=== PATIENT | female | born 1965 | race Caucasian/White ===

== ENCOUNTER → 2018-02-16 15:37 | Outpatient (CLI) | payer OTHER, SELFPAY ==
--- NOTE | 2018-02-16 15:39 | CT_ITS ---
STUDY: CT ABDOMEN AND PELVIS WITH CONTRAST REASON FOR EXAM: Female, 52 years old. Hematuria RADIATION DOSAGE (If Supplied By Facility): CTDIvol = ( 7.23 ) mGy, DLP = ( 427.59 ) mGycm TECHNIQUE: Transaxial images were obtained from the dome of the diaphragm to the symphysis pubis without oral contrast. 100 ml of Isovue 300 contrast was administered. Sagittal and coronal images were reconstructed. Individualized dose optimization techniques were used for this CT. COMPARISON: None. FINDINGS: There is atelectasis at the lung bases. The visualized portions of the heart and pericardium are within normal limits. There are no calcified gallstones present. There is a 4.0 x 3.9 cm hemangioma in the dome of the liver. The liver is otherwise within normal limits. There are no suspicious hepatic lesions. There are calcified granulomata noted in the spleen. The pancreas is within normal limits. The adrenal glands are within normal limits. There is a punctate nonobstructing stone in the collecting system of the right kidney. There are no additional urinary stones. There is no hydronephrosis. There is a simple cyst in the left kidney. There are no solid or enhancing renal lesions. The urinary bladder is unremarkable. Normal visualized stomach. There is no bowel obstruction or inflammation. The patient is status post appendectomy. The aorta is normal in caliber. There is no abdominal or pelvic free air, free fluid, fluid collection or lymphadenopathy. There are no destructive osseous lesions. CT/Abdomen/Pelvis WITH Contrast IMPRESSION: Punctate nonobstructing right renal stone. No additional urinary calculi. No hydronephrosis. Simple cyst left kidney. No solid enhancing renal lesions. Hepatic hemangioma. Electronically Signed: Moe Holder, at 16:16 EDT Tel , Service support ,
== END ==
PROVIDERS: Family Provider Family Medicine; PCP Family Medicine; Visit Provider Family Medicine
DX: R31.29 Other microscopic hematuria (principal)
CPT/HCPCS: 74177; Q9967

== ENCOUNTER → 2018-10-13 15:28 | Outpatient (CLI) | payer OTHER, SELFPAY ==
--- NOTE | 2018-10-13 15:30 | BI_ITS ---
MAMMOGRAPHY - BILATERAL SCREENING REASON FOR EXAM: Female, 53 years old. Routine annual screening examination. PERTINENT HISTORY: Non-contributory. TECHNIQUE: Digital bilateral breast taj (3D mammographic acquisition) in the CC and MLO projections. 2-D mediolateral oblique (MLO) and craniocaudad (CC) views of both breasts were obtained. CAD: Full Field Digital Mammography with Computer Added Detection was performed. COMPARISON: Comparison is made with prior study dated September 14, 2017 and August 31, 2016. FINDINGS: Breast Composition: The breasts are extremely dense, which lowers the sensitivity of mammography. There are no dominant masses or suspicious calcifications. No other significant abnormalities are identified. There has been no significant change since the prior study. BI/SCREENING MAMM (CAD), BILAT IMPRESSION: Stable bilateral screening mammogram. Yearly follow-up mammogram recommended. (A) ASSESSMENT CATEGORY: BIRADS Category 1: Negative. A letter regarding these results will be sent to the patient by the facility within 30 days. Approximately 10% of breast cancers are not detected by mammography. A normal mammogram should not delay biopsy of a clinically suspicious abnormality. [id number] Electronically Signed: Toy Bonilla MD at 8:41 EST , Service support ,
--- NOTE | 2018-10-13 15:32 | BD_ITS ---
STUDY: DUAL ENERGY X-RAY ABSORPTIOMETRY / DXA REASON FOR EXAM: Female, 53 years old. The patient is postmenopausal. Loss of height. TECHNIQUE: Bone Mineral Density (BMD) measurements of lumbar spine and bilateral hips were obtained. COMPARISON: None. FINDINGS: Lumbar Spine (L1-L4): g/cm2 (1.363) / T-score (1.5) / Z-score (2.4) Findings are suggestive of normal bone density with a low fracture risk. Left Femur Total: g/cm2 (0.935) / T-score (-0.7) / Z-score (0.3) Right Femur Total: g/cm2 (1.087) / T-score (0.6) / Z-score (1.3) Right Femoral Neck: g/cm2 (0.960) / T-score (-0.6) / Z-score (0.5) BD/Dexa Bone Density Study IMPRESSION: The patient is considered normal as outlined below according to World [employer] Organization (WHO) criteria with a low fracture risk. Reference Information: The T-score is the number of standard deviations above or below the standard which is normal for young adults at their peak bone mineral density. The World Health Organization (WHO) interprets the T-scores as follows: Above -1 Normal bone density Between -1 and -2.5 Osteopenia Equal to / or below -2.5 Osteoporosis As a practical clinical guideline, osteopenia may be graded as follows: Mild -1 through -1.5 Moderate -1.6 through -2.0 Severe -2.1 through -2.4 The Z-score is the number of standard deviations above or below age-matched controls. A Z-score of less than -1.5 would be considered abnormal. References: 1. NIH Osteoporosis and Related Bone Diseases http://www.osteo.org 2. International Society for Clinical Densitometry http://www.iscd.org 3. National Osteoporosis Foundation http://www.nof.org Electronically Signed: Toy Bonilla MD at 10:35 EST , Service support ,
== END ==
PROVIDERS: Family Provider Family Medicine; PCP Family Medicine; Referring Provider Obstetrics & Gynecology; Visit Provider Obstetrics & Gynecology
DX: Z12.31 Encounter for screening mammogram for malignant neoplasm of breast (principal); Z13.820 Encounter for screening for osteoporosis; Z78.0 Asymptomatic menopausal state
CPT/HCPCS: 77063; 77067; 77080

== ENCOUNTER → 2018-12-15 13:04 | Outpatient (CLI) | payer OTHER, SELFPAY ==
[2018-12-15 12:56] VITALS: BMI 20.6
--- NOTE | 2018-12-15 13:08 | RAD_ITS ---
STUDY: X-RAY - LEFT HAND, ATTENTION THIRD FINGER REASON FOR EXAM: Female, 53 years old. Pain TECHNIQUE: 4 view(s) of the finger were obtained. COMPARISON: None. FINDINGS: Normal metacarpal head. Normal metacarpophalangeal joint. Normal proximal phalanx. Normal middle phalanx. Normal distal phalanx. Normal proximal interphalangeal joint. Normal distal interphalangeal joint. RAD/Finger(s) Min 2 Views IMPRESSION: Normal x-ray examination of the finger. Electronically Signed: Rios Falcon MD at 13:26 EDT , Service support ,
== END ==
PROVIDERS: Family Provider Family Medicine; PCP Family Medicine; Referring Provider Physician Assistant; Visit Provider Physician Assistant
DX: M79.645 Pain in left finger(s) (principal)
CPT/HCPCS: 73140

== ENCOUNTER → 2019-08-07 15:27 | Outpatient (CLI) | payer OTHER, SELFPAY ==
[2018-12-15 12:56] VITALS: BMI 20.6
--- NOTE | 2019-08-07 15:33 | RAD_ITS ---
STUDY: X-RAY - LEFT HAND, ATTENTION FIRST FINGER REASON FOR EXAM: Female, 54 years old. Pain. TECHNIQUE: 3 view(s) of the finger were obtained. COMPARISON: None. FINDINGS: Normal metacarpal head. Normal metacarpophalangeal joint. There is degenerative arthritis at the first carpometacarpal joint with minimal subluxation. Normal proximal phalanx. Normal middle phalanx. Normal distal phalanx. There is mild degenerative arthrosis of the proximal interphalangeal joint. Normal distal interphalangeal joint. There is no demonstrated fracture. There is no soft tissue swelling. RAD/Finger(s) Min 2 Views IMPRESSION: Degenerative disease as described above. Electronically Signed: Mary Jo Gan MD at 0:43 EST , Service support ,
--- NOTE | 2019-08-07 15:33 | RAD_ITS ---
STUDY: X-RAY - RIGHT HAND, ATTENTION FIRST FINGER REASON FOR EXAM: Female, 54 years old. Pain. TECHNIQUE: 3 view(s) of the finger were obtained. COMPARISON: None. FINDINGS: Normal metacarpal head. Normal metacarpophalangeal joint. There is degenerative disease at the first carpometacarpal joint with minimal malalignment. Normal proximal phalanx. Normal middle phalanx. Normal distal phalanx. Normal proximal interphalangeal joint. There is mild degenerative arthrosis of the distal interphalangeal joint. There is no soft tissue swelling. There is no demonstrated fracture. RAD/Finger(s) Min 2 Views IMPRESSION: Degenerative disease, most severely involving the first carpometacarpal joint with very minimal malalignment. Otherwise no acute fracture. Electronically Signed: Mary Jo Gan MD at 0:43 EST , Service support ,
== END ==
PROVIDERS: Family Provider Family Medicine; PCP Family Medicine; Referring Provider Specialist; Visit Provider Specialist
DX: M18.0 Bilateral primary osteoarthritis of first carpometacarpal joints (principal)
CPT/HCPCS: 73140

== ENCOUNTER → 2019-09-01 06:28 | Outpatient (CLI) | payer OTHER, SELFPAY ==
[2018-12-15 12:56] VITALS: BMI 20.6
[2019-09-01 07:20] LABS: Hematocrit 45.2 % (37-47); Hemoglobin 14.4 g/dL (12.0-15.0); Mean Corp Hgb Conc 31.9 g/dL (32-36); Mean Corpuscular Hgb 29.4 pg (27.0-32.0); Mean Corpuscular Volume 92.2 fL (81-99); Mean Platelet Vol. 9.1 fl (6.2-12.0); Platelet Count 286 K/mm3 (150-450); White Blood Count 8.9 K/mm3 (4.4-11.0)
[2019-09-01 07:50] LABS: ALB/GLOB Ratio 1.2 RATIO (0.9-2.4); AST(SGOT) 23 U/L (15-37); Alanine Aminotransfer ALT/SGPT 28 U/L (13-56); Alkaline Phosphatase 116 U/L (45-117); Anion Gap 4 (5-15); BUN 21 mg/dL (7-18); BUN/Creat Ratio 18.9 RATIO (10-20); Calcium,Total 9.6 mg/dL (8.5-10.1); Chloride 109 mmol/L (98-107); Cholesterol 186 mg/dL (200); Creatinine, Serum 1.11 mg/dL (0.55-1.02); EST Glomerular Filtration Rate 54 mL/min (>60); Est Glom Filt Rate - Afr Amer 65 mL/min (>60); Globulin 3.4 g/dL (2.2-4.2); Glucose 90 mg/dL (74-106); High Density Lipoprotein 77 mg/dL; Potassium 4.2 mmol/L (3.5-5.1); Protein, Total 7.4 g/dL (6.4-8.2); Sodium Level 141 mmol/L (136-145); Triglycerides 77 mg/dL; Very Low Density Lipoprotein 15 mg/dL (5-40)
== END ==
LOC: LAB.FUTURE 06:31 → LAB 06:34
PROVIDERS: Family Provider Family Medicine; PCP Family Medicine; Referring Provider Family Medicine; Visit Provider Family Medicine
DX: Z00.00 Encounter for general adult medical examination without abnormal findings (principal); Z13.220 Encounter for screening for lipoid disorders; Z13.1 Encounter for screening for diabetes mellitus
CPT/HCPCS: 36415; 80053; 80061; 85027

== ENCOUNTER → 2019-10-16 12:01 | Outpatient (CLI) | payer OTHER, SELFPAY ==
[2018-12-15 12:56] VITALS: BMI 20.6
--- NOTE | 2019-10-16 12:04 | BI_ITS ---
BILATERAL DIGITAL MAMMOGRAM WITH TOMOSYNTHESIS: This HISTORY: No family history of breast cancer Mediolateraloblique and craniocaudal views demonstrate no evidence of dominant parenchymal masses. No cluster of microcalcifications or architectural distortion is seen. No evidence of skin thickening is identified. There has been no significant change since 10/13/2018. Breast Density: The breast tissue is extremely dense which may lower the sensitivity of mammography. CAD was used to assist in final assessment. IMPRESSION: NORMAL MAMMOGRAM BILATERALLY. FINAL ASSESSMENT: BIRAD 1 (NEGATIVE) YEARLY MAMMOGRAM RECOMMENDED Electronically Signed: Jose Brandt, at 18:06 EST Tel , Service support , BI/SCREEN MAMM (CAD) W/KACI LOUIE
== END ==
PROVIDERS: Family Provider Family Medicine; PCP Family Medicine; Referring Provider Obstetrics & Gynecology; Visit Provider Obstetrics & Gynecology
DX: Z12.31 Encounter for screening mammogram for malignant neoplasm of breast (principal)
CPT/HCPCS: 77063; 77067

== ENCOUNTER 2019-11-25 03:33 | Emergency (ER) | payer OTHER, SELFPAY ==
[2018-12-15 12:56] VITALS: BMI 20.6
[2019-11-25 03:33] VITALS: BP 112/97; PULSE 63; RESP 18; TEMP 35.9; O2SAT 99; BMI 20.6
--- NOTE | 2019-11-25 03:34 | CT_ITS ---
STUDY: CT ABDOMEN AND PELVIS WITHOUT CONTRAST REASON FOR EXAM: Female, 54 years old. PT STATED RT FLANK PAIN, HX OF AND APPY RADIATION DOSAGE (If Supplied By Facility): CTDIvol = ( 6.08 ) mGy, DLP = ( 287.30 ) mGycm TECHNIQUE: Transaxial images were obtained from the dome of the diaphragm to the symphysis pubis without oral contrast, and without intravenous contrast. Sagittal and coronal images were reconstructed. Individualized dose optimization techniques were used for this CT. COMPARISON: CT abdomen and pelvis from 02/16/2018 FINDINGS: The visualized lung bases are unremarkable. The visualized portions of the heart are within normal limits. Stable round hypodensity in the right hepatic lobe measuring approximately 3.5 x 3.5 cm in transverse dimension. Normal gallbladder and extrahepatic biliary system. There are multiple benign calcified granulomata of the spleen. Normal pancreas. Normal bilateral adrenal glands. There is a 2 mm calculus at the right ureterovesicular junction with mild right hydroureter and calyceal dilatation.. Additional tiny nonobstructive 2 mm right renal calculus. Stable left renal tiny cyst. Normal visualized stomach. Normal small intestine. Normal colon. There are surgical clips in the region of the appendix consistent with a prior appendectomy. Normal abdominal aorta. Normal inferior vena cava. Normal retroperitoneum. Normal urinary bladder. Normal abdominal wall. Normal osseous structures. CT/Abdomen/Pelvis without Cont IMPRESSION: 2 mm calculus at the right ureterovesicular junction with mild right hydroureter and calyceal dilatation. Stable right hepatic lobe mass previously characterized as hemangioma. Electronically Signed: Jeovanny Seay, at 4:24 EDT Tel , Service support ,
--- NOTE | 2019-11-25 03:35 | ED.DCSUM_ITS ---
History of Present Illness Chief Complaint: Flank Pain Informant: Patient Onset: Today Context: Sudden Onset Timing: Continuous Current Severity: Moderate Maximum Severity: Severe Narrative: The patient is a 54-year-old female with medical history significant for prior kidney stone that is never required lithotripsy or stenting presents to the emergency department with rather sudden onset right-sided flank and low back pain. Patient states her symptoms began about 2 hours prior to arrival. She states she is been nauseated and has 2 episodes of nonbloody, nonbilious vomiting. She has had stones before and has seen urology, but is never required any procedure. She denies any fevers or chills. She denies any upper respiratory symptoms. She is not found anything that improve the pain. Prior similar symptoms: Yes Recent Illness/Hospitalization: No Past Medical History - Allergies and Home Meds Allergies/Adverse Reactions: Allergies bacitracin Allergy (Intermediate, Verified 12/15/18 12:56) Other Penicillins [PCN] Allergy (Verified 12/15/18 12:56) Rash Primary Care Physician: Oseas Machuca III, MD [Primary Care Provider] - Prior records reviewed: Yes Past Medical History: None Surgical History: noncontributory Smoking Status: Former smoker Review of Systems General: Denies: Chills, Fever, Sweats Eyes: Denies: Visual changes - bilaterally, Diplopia ENT: Denies: Rhinorrhea, Sore throat Cardiovascular: Denies: Chest pain, Palpitations Respiratory: Denies: Dyspnea, Cough, Dyspnea on exertion Gastrointestinal: Reports: Nausea, Vomiting. Denies: Abdominal pain, Diarrhea, Melena, Hematochezia Genitourinary: Denies: Dysuria, Hematuria, Frequency Musculoskeletal: Reports: Back pain. Denies: Extremity Pain Skin: Denies: Rash, Wounds Neurological: Denies: Headache, Weakness, Numbness Physical Exam Inital Vital Signs reviewed: Yes General: Well nourished, Well developed, No Acute Distress Head: Normocephalic, Atraumatic Eyes: Perrl, EOMI ENT: Moist mucous membranes, No rhinorrhea Neck: Supple, Nontender Cardiovascular: Regular rate, Regular rhythm, No murmurs Respiratory: No distress, CTA bilaterally, Chest nontender Abdomen: Soft, Nontender, Nondistended, Normal bowel sounds Back: Normal Inspection, CVA tenderness Extremities: Nontender, No edema Skin: Normal color, No rash Neurological: Alert, Oriented x3, Cranial nerves II-XII grossly intact, Normal Strength, Normal Sensation Psychological: Normal affect, Normal Mood Diagnostic/Tx/Re-eval Clinical Impression(s) from Imaging Studies Abdomen/Pelvis CT 11/25/19 03:34 IMPRESSION: 2 mm calculus at the right ureterovesicular junction with mild right hydroureter and calyceal dilatation. Stable right hepatic lobe mass previously characterized as hemangioma. Electronically Signed: Jeovanny Seay, at 4:24 EDT Tel , Service support , Abnormal Lab Results 11/25/19 11/25/19 03:37 03:37 WBC 13.1 H RBC 4.77 Hgb 14.1 Hct 43.1 MCV 90.4 MCH 29.6 MCHC 32.7 RDW Std Deviation 38.6 RDW Coeff of Efra 11.8 Plt Count 259 MPV 9.0 Immature Gran % (Auto) 0.400 Neut % (Auto) 70.6 H Lymph % (Auto) 23.1 Gordon % (Auto) 4.4 Eos % (Auto) 1.0 Baso % (Auto) 0.5 Absolute Neuts (auto) 9.3 H Absolute Lymphs (auto) 3.04 Nucleated RBC % 0 Sodium 141 Potassium 3.8 Chloride 108 H Carbon Dioxide 26.0 Anion Gap 7 BUN 28 H Creatinine 1.33 H Estim Creat Clear Calc 40.64 Est GFR (MDRD) Af Amer 53 L Est GFR (MDRD) Non-Af 44 L BUN/Creatinine Ratio 21.1 H Glucose 138 H Calcium 9.9 - Medical Decision Making The patient presents with acute right lower back pain into her right groin. She does have history of stones but has passed them without difficulty. The patient was treated with Toradol, morphine, and Zofran. Her nausea was improved but she still had persistent pain. She was given Dilaudid and is now totally pain-free. Screening labs are relatively unremarkable. CT does demonstrate a 2 mm obstructing stone at the UVJ. As the patient is now pain-free, has no evidence of infection, and has a small stone I do feel that she is safe for outpatient therapy and she is comfortable with this plan of care. She has seen Dr. Bernabe in the past. She was counseled on concerning symptoms and reasons to return. She will be discharged home. Impression 1. 2 mm kidney stone ED Disposition - Plan for ED Patient: Instructions: ED Renal Stone w Colic Prescriptions: Tamsulosin HCl [Flomax] 0.4 mg PO DAILY #7 cap Prescription Printed Hydrocodone Bitart/Apap 5-325 [[place] 5MG-325MG] 1 tab PO Q6H PRN PRN 3 Days #10 tab PRN Reason: Pain Prescription Printed Ketorolac [Toradol] 10 mg PO Q6H #15 tab Prescription Printed Ondansetron [Zofran Odt] 4 mg PO Q8H PRN PRN #10 tab PRN Reason: Nausea Prescription Printed Referrals: Yakelin Bernabe MD [STAFF PHYSICIAN] -
[2019-11-25] MEDS: Ketorolac 30 MG/ML Syringe IV (03:43)
[2019-11-25] MEDS: Morphine 4 MG/ML Syringe IV (03:44)
[2019-11-25] MEDS: Ondansetron 4 MG/2 ML Vial IV ×2 (03:44→05:35)
[2019-11-25 03:49] LABS: Absolute Lymphocyte Count 3.04 X10^3/uL (0.83-4.51); Absolute Neutrophil Count 9.3 X10^3/uL (2.0-7.7); Basophil# 0.06 X10^3/uL; Basophil% 0.5 % (0-1); Eosinophil# 0.13 X10^3/uL; Hematocrit 43.1 % (37-47); Hemoglobin 14.1 g/dL (12.0-15.0); Lymphocyte # 3.04 X10^3/ul (4.0); Lymphocyte % 23.1 % (19-41); Mean Corp Hgb Conc 32.7 g/dL (32-36); Mean Corpuscular Hgb 29.6 pg (27.0-32.0); Mean Corpuscular Volume 90.4 fL (81-99); Monocyte# 0.58 X10^3/uL; Monocyte% 4.4 % (0-10); NRBC Flagged by Analyzer 0 % (0-5); Neutrophil # 9.28 X10^3/uL (2.7-7.7); Neutrophil % 70.6 % (47-70); Platelet Count 259 K/mm3 (150-450); RBC Distribution Width CV 11.8 % (11.6-14.6); RBC Distribution Width SD 38.6 fl (35.1-43.9); Red Blood Count 4.77 M/mm3 (4.2-5.4); White Blood Count 13.1 K/mm3 (4.4-11.0)
[2019-11-25 04:02] LABS: Anion Gap 7 (5-15); BUN 28 mg/dL (7-18); BUN/Creat Ratio 21.1 RATIO (10-20); Calcium,Total 9.9 mg/dL (8.5-10.1); Chloride 108 mmol/L (98-107); Creatinine, Serum 1.33 mg/dL (0.55-1.02); EST Glomerular Filtration Rate 44 mL/min (>60); Est Glom Filt Rate - Afr Amer 53 mL/min (>60); Estimated Creatinine Clearance 40.64 ml/min; Glucose 138 mg/dL (74-106); Potassium 3.8 mmol/L (3.5-5.1); Sodium Level 141 mmol/L (136-145)
[2019-11-25] MEDS: HYDROmorphone 1 MG/ML Syringe IV (04:24)
[2019-11-25] MEDS: 0.9% Normal Saline 1,000 ML 250 ML IV (04:26)
[2019-11-25 04:59] LABS: Bacteria 0 SEEN /hpf (None Seen); Mucous, Urine 0 SEEN /hpf (<or=2+); Squamous Epithelial Cells - UA 0 SEEN /hpf (5-10)
[2019-11-25] MEDS: HYDROmorphone 0.5 MG/0.5 ML SYRINGE IV (05:35)
[2019-11-25 05:36] LABS: Color, Urine Yellow (Yellow); Glucose, Dipstick Normal (Normal); Ketone-Dipstick 15 mg/dl (Negative); Leukocyte Esterase-Dipstick 25 /ul (Negative); Nitrite-Dipstick Negative (Negative); Occult Blood-Urine 50 /ul (Negative); Protein-Dipstick 30 mg/dl (Negative); Urine Bilirubin Dipstick Negative (Negative); Urine Clarity Sl. Cloudy (Clear); Urine Urobilinogen Normal (Normal); Urine pH 6.5 (5.0 - 8.0)
[2019-11-25 05:46] VITALS: BP 114/71; PULSE 71; RESP 15; O2SAT 94
[2019-11-25] MEDS: proMETHazine 25 MG/ML Syringe 12.5 MG IV (05:59)
[2019-11-25 06:01] LABS: Red Blood Cells-Urine 0-5 SEEN /hpf (0-5); White Blood Cells 0-5 SEEN /hpf (0-5)
[2019-11-25 06:02] LABS: Amorphous Sediment 1+; Calcium Oxalate Crystals Ur RARE /hpf (<or=2+)
[2019-11-25 06:37] VITALS: BP 101/64; PULSE 74; RESP 15; O2SAT 98
== END 2019-11-25 06:40 | disposition home or self-care (01) ==
LOC: ED 04:09
PROVIDERS: Emergency Provider Emergency Medicine; PCP Family Medicine
DX: N20.1 Calculus of ureter (principal); Z87.891 Personal history of nicotine dependence; Z87.442 Personal history of urinary calculi
CPT/HCPCS: 74176; 80048; 81001; 85025; 96361; 96374; 96375; 96376; 99283; J7030; A4216; J2405

== ENCOUNTER → 2020-09-03 07:50 | Outpatient (CLI) | payer OTHER, SELFPAY ==
[2020-09-03 08:28] LABS: Hematocrit 44.7 % (37-47); Hemoglobin 14.5 g/dL (12.0-15.0); Mean Corp Hgb Conc 32.4 g/dL (32-36); Mean Corpuscular Hgb 29.7 pg (27.0-32.0); Mean Corpuscular Volume 91.4 fL (81-99); Mean Platelet Vol. 8.8 fl (6.2-12.0); Platelet Count 303 K/mm3 (150-450); RBC Distribution Width CV 11.9 % (11.6-14.6); RBC Distribution Width SD 40.2 fl (35.1-43.9); Red Blood Count 4.89 M/mm3 (4.2-5.4); White Blood Count 10.4 K/mm3 (4.4-11.0)
[2020-09-03 08:50] LABS: ALB/GLOB Ratio 1.2 RATIO (0.9-2.4); AST(SGOT) 24 U/L (15-37); Alanine Aminotransfer ALT/SGPT 34 U/L (13-56); Albumin, Serum 3.9 g/dL (3.2-5.0); Alkaline Phosphatase 121 U/L (45-117); Anion Gap 4 (5-15); BUN 18 mg/dL (7-18); BUN/Creat Ratio 16.1 RATIO (10-20); Calcium,Total 9.4 mg/dL (8.5-10.1); Chloride 107 mmol/L (98-107); Cholesterol 190 mg/dL (200); Creatinine, Serum 1.12 mg/dL (0.55-1.02); EST Glomerular Filtration Rate 53 mL/min (>60); Est Glom Filt Rate - Afr Amer 64 mL/min (>60); Globulin 3.3 g/dL (2.2-4.2); Glucose 88 mg/dL (74-106); High Density Lipoprotein 87 mg/dL; Potassium 4.3 mmol/L (3.5-5.1); Protein, Total 7.2 g/dL (6.4-8.2); Sodium Level 139 mmol/L (136-145); Triglycerides 60 mg/dL; Very Low Density Lipoprotein 12 mg/dL (5-40)
== END ==
PROVIDERS: PCP Family Medicine; Referring Provider Family Medicine; Visit Provider Family Medicine
DX: Z00.00 Encounter for general adult medical examination without abnormal findings (principal); Z13.220 Encounter for screening for lipoid disorders
CPT/HCPCS: 36415; 80053; 80061; 85027

== ENCOUNTER → 2020-10-31 13:10 | Outpatient (CLI) | payer OTHER, SELFPAY ==
--- NOTE | 2020-10-31 13:12 | BI_ITS ---
MAMMOGRAPHY - BILATERAL SCREENING REASON FOR EXAM: Female, 55 years old. Routine annual screening examination. PERTINENT HISTORY: Non-contributory. TECHNIQUE: Digital bilateral breast kaci (3D mammographic acquisition) in the CC and MLO projections. 2-D mediolateral oblique (MLO) and craniocaudad (CC) views of both breasts were obtained. CAD: Full Field Digital Mammography with Computer Added Detection was performed. COMPARISON: Comparison is made with prior study dated 10/16/2019 and 10/13/2018. FINDINGS: Breast Composition: The breasts are extremely dense, which lowers the sensitivity of mammography. There are no dominant masses or suspicious calcifications. No other significant abnormalities are identified. There has been no significant change since the prior study. BI/SCRN MAMM (CAD)W/KACI BILAT IMPRESSION: Stable bilateral screening mammogram. Yearly follow-up mammogram recommended. (A) ASSESSMENT CATEGORY: BIRADS Category 1: Negative. A letter regarding these results will be sent to the patient by the facility within 30 days. Approximately 10% of breast cancers are not detected by mammography. A normal mammogram should not delay biopsy of a clinically suspicious abnormality. [id number] Electronically Signed: Toy Bonilla MD at 12:36 EDT , Service support ,
== END ==
PROVIDERS: PCP Family Medicine; Referring Provider Obstetrics & Gynecology; Visit Provider Obstetrics & Gynecology
DX: Z12.31 Encounter for screening mammogram for malignant neoplasm of breast (principal)
CPT/HCPCS: 77063; 77067

== ENCOUNTER 2020-11-01 07:34 | Day surgery (SDC) | payer OTHER, SELFPAY ==
[2020-11-01] VITALS (7 sets, daily range): BP systolic 98–104; BP diastolic 55–87; PULSE 77–89; RESP 16; TEMP 36.3–36.8; O2SAT 99–100; BMI 20.1
--- NOTE | 2020-11-01 07:52 | PCM.HP.STD ---
Problem List (1) Personal history of colonic polyps Status: Acute History of Present Illness Date of Admission: 11/01/20 The patient is a 55 year old F with a personal history of colon polyps. Her previous colonoscopy was August 2013. It was in the sigmoid colon. No evidence of malignancy. She is feeling well. Has no generalized health problems. No bright red blood per rectum or melena. No abdominal pain. No unexpected weight loss. Past Medical History Medical History: Medical History (Last Updated 12/15/18 @ 12:59 by Sandra Quesada) Osteoarthritis M19.90 Chronic back pain M54.9, G89.29 Chronic headaches R51 Allergies bacitracin Allergy (Intermediate, Verified 10/28/20 11:33) Other Penicillins [PCN] Allergy (Verified 10/28/20 11:33) Rash Home Medications: Ambulatory Orders Medication Instructions Recorded Multivit with Calcium,Iron,Min 1 ea PO DAILY 11/25/19 [Multiple Vitamins For Women] Surgical History: Surgical History (Last Updated 12/15/18 @ 12:59 by Sandra Quesada) CRIF hand R hand bx History of tonsillectomy Z90.89 Hx of section Z98.891 Status post ligament repair Z98.890 eye cystectomy R eye Surgical History: noncontributory Smoking Status: Former smoker Tobacco Use: Non-smoker Review of Systems Constitutional: Denies: Fever HEENT: Denies: Difficulty Swallowing Cardiovascular: Denies: Chest Pain Respiratory: Denies: Cough Gastrointestinal: Denies: Abdominal Pain, Hematochezia, Melena Endocrine: Denies: Change in Body Habitus VTE Information - Inpt Only VTE Present on Admission: No - Physical Exam Vitals/I&O's: Body Mass Index (BMI) 20.6 General: Alert, Oriented x3, Cooperative, No apparent distress HEENT: Atraumatic Oral: Moist Mucosa Neck: Supple Lungs: Clear to auscultation, Normal air movement Cardiovascular: Regular rate, Regular Rhythm Abdomen: Bowel Sounds Present, Soft, Non Tender Extremities: No Calf Tenderness Psych/Mental Status: Normal Affect Microbiology Past 72 Hours 10/31/20 09:45 Interface Orders SARS-CoV-2 Antigen (Rapid) - Final Assessment/Plan All Active Problems (Last Updated 12/15/18 @ 12:59 by Sandra Quesada) Personal history of colonic polyps (Acute) Laceration of left middle finger (Acute) Contusion of left middle finger (Acute) I recommended the patient a surveillance colonoscopy with possible biopsy or polypectomy as indicated. She presents via open access today. She has had an opportunity to ask and have questions answered. We will proceed as noted. Joseph Machuca M.D., F.A.C.S. Procedure Criteria Procedure Type: Elective COVID Risk Discussion: The surgeon/proceduralist and patient have discussed in detail the risk of exposure to and/or potential harm posed by the COVID-19 virus with having a surgery/procedure at this time versus the risk of delaying the surgery/procedure. It is not possible to know either the risk of delaying the surgery or procedure or chance of getting an infection with perfect accuracy, but a joint decision was made between the patient and the surgeon/proceduralist to proceed at this time with the scheduled surgery/procedure as indicated on the consent form.
[2020-11-01] MEDS: Lactated Ringers 1,000 ML 100 ML IV (08:15)
--- NOTE | 2020-11-01 09:03 | OP.COLON_ITS ---
Patient Name: Luciana Pickett Procedure Date: 11/01/2020 8:28 AM Date of : 1965 Age: 55 Procedure: Colonoscopy Indications: High risk colon cancer surveillance: Personal history of colonic polyps Providers: Joseph Machuca MD Referring MD: Oseas Machuca Iii Medicines: See the Anesthesia note for documentation of the administered medications Patient Profile: Last Colonoscopy: August 2013. Complications: No immediate complications. Procedure: Pre-Anesthesia Assessment: - Prior to the procedure, a History and Physical was performed, and patient medications and allergies were reviewed. The patient's tolerance of previous anesthesia was also reviewed. The risks and benefits of the procedure and the sedation options and risks were discussed with the patient. All questions were answered, and informed consent was obtained. Prior Anticoagulants: The patient has taken no previous anticoagulant or antiplatelet agents. ASA Grade Assessment: II - A patient with mild systemic disease. After reviewing the risks and benefits, the patient was deemed in satisfactory condition to undergo the procedure. After I obtained informed consent, the scope was passed under direct vision. Throughout the procedure, the patient's blood pressure, pulse, and oxygen saturations were monitored continuously. The pediatric colonoscope was introduced through the anus and advanced to the cecum, identified by appendiceal orifice and ileocecal valve. The colonoscopy was unusually difficult due to a tortuous colon. Successful completion of the procedure was aided by changing the patient to a supine position and using manual pressure. The patient tolerated the procedure well. The quality of the bowel preparation was good. The ileocecal valve and the appendiceal orifice were photographed. Scope In: 8:40:55 AM Scope Withdrawal Time 0 hours 6 minutes 28 seconds Scope Out: 8:58:56 AM Total Procedure Duration Time 0 hours 18 minutes 1 second Findings: Hemorrhoids were found on perianal exam. A few diverticula were found in the entire colon. The exam was otherwise without abnormality. Impression: - Hemorrhoids found on perianal exam. - Diverticulosis in the entire examined colon. - The examination was otherwise normal. - No specimens collected. Recommendation: - Discharge patient to home. - Resume previous diet. - Continue present medications. - Repeat colonoscopy in 10 years for screening purposes. Procedure Code(s): --- Professional --- 29998, Colonoscopy, flexible; diagnostic, including collection of specimen(s) by brushing or washing, when performed (separate procedure) Diagnosis Code(s): --- Professional --- Z86.010, Personal history of colonic polyps K64.9, Unspecified hemorrhoids K57.30, Diverticulosis of large intestine without perforation or abscess without bleeding CPT copyright 2017 [employer]. All rights reserved. The codes documented in this report are preliminary and upon transition program manager review may be revised to meet current compliance requirements. Joseph Machuca MD 11/01/2020 9:03:41 AM This report has been signed electronically. Number of Addenda: 0 Note Initiated On: 11/01/2020 8:28 AM
--- NOTE | 2020-11-01 09:03 | OP.CCLET_ITS ---
11/01/2020 Oseas Machuca I[address] [place] [address] Re : Colonoscopy procedure for Luciana Pickett Dear Dr. Machuca This procedure was performed on Sunday, November 01, 2020. My impressions and recommendations are as follows: Impressions : - Hemorrhoids found on perianal exam. - Diverticulosis in the entire examined colon. - The examination was otherwise normal. - No specimens collected. Recommendations : - Discharge patient to home. - Resume previous diet. - Continue present medications. - Repeat colonoscopy in 10 years for screening purposes. My findings are described in the full procedure note, which is enclosed. If I can be of further assistance, please feel free to contact me at Doctor phone number(s): Work: . Sincerely, Joseph Machuca MD 11/01/2020 9:03:41 AM This report has been signed electronically.
== END 2020-11-01 10:12 | disposition home or self-care (01) ==
LOC: EN 07:35 → AC 07:36
PROVIDERS: PCP Family Medicine; Referring Provider Family Medicine; Visit Provider Surgery
PROC: 0DJD8ZZ Inspection of Lower Intestinal Tract, Via Natural or Artificial Opening Endoscopic (ICD-10-PCS; CPT 45378; principal; 2020-11-01 08:40)
DX: Z12.11 Encounter for screening for malignant neoplasm of colon (principal); K57.30 Diverticulosis of large intestine without perforation or abscess without bleeding; K64.9 Unspecified hemorrhoids; Z20.822 Contact with and (suspected) exposure to COVID-19; M19.90 Unspecified osteoarthritis, unspecified site; M54.9 Dorsalgia, unspecified; G89.29 Other chronic pain; Z78.0 Asymptomatic menopausal state; Z86.010 Personal history of colon polyps; Z87.891 Personal history of nicotine dependence
CPT/HCPCS: 45378; 87426; C9803; J7120; J2405

== ENCOUNTER 2021-09-19 06:03 | Outpatient (CLI) | payer OTHER, SELFPAY ==
[2021-09-19 07:11] LABS: Absolute Lymphocyte Count 2.05 X10^3/uL (0.83-4.51); Absolute Neutrophil Count 4.8 X10^3/uL (2.0-7.7); Basophil# 0.05 X10^3/uL; Basophil% 0.7 % (0-1); Eosinophil# 0.13 X10^3/uL; Eosinophils% 1.7 % (0-5); Hematocrit 44.2 % (37-47); Hemoglobin 14.5 g/dL (12.0-15.0); Lymphocyte # 2.05 X10^3/ul (0.83-4.51); Lymphocyte % 27.6 % (19-41); Mean Corp Hgb Conc 32.8 g/dL (32-36); Mean Corpuscular Hgb 29.7 pg (27.0-32.0); Mean Corpuscular Volume 90.6 fL (81-99); Mean Platelet Vol. 9.2 fl (6.2-12.0); Monocyte# 0.41 X10^3/uL; Monocyte% 5.5 % (0-10); NRBC Flagged by Analyzer 0 % (0-5); Neutrophil # 4.76 X10^3/uL (2.7-7.7); Neutrophil % 64.1 % (47-70); Platelet Count 275 K/mm3 (150-450); RBC Distribution Width CV 12.1 % (11.6-14.6); RBC Distribution Width SD 40.5 fl (35.1-43.9); Red Blood Count 4.88 M/mm3 (4.2-5.4); White Blood Count 7.4 K/mm3 (4.4-11.0)
[2021-09-19 07:39] LABS: ALB/GLOB Ratio 1.1 RATIO (0.9-2.4); AST(SGOT) 18 U/L (15-37); Alanine Aminotransfer ALT/SGPT 20 U/L (13-56); Albumin, Serum 3.6 g/dL (3.2-5.0); Alkaline Phosphatase 103 U/L (45-117); Anion Gap 3 (5-15); BUN 16 mg/dL (7-18); Calcium,Total 9.2 mg/dL (8.5-10.1); Chloride 109 mmol/L (98-107); Cholesterol 161 mg/dL (200); EST Glomerular Filtration Rate 60 mL/min (>60); Est Glom Filt Rate - Afr Amer 73 mL/min (>60); Globulin 3.3 g/dL (2.2-4.2); Glucose 80 mg/dL (74-106); High Density Lipoprotein 69 mg/dL; Potassium 4.1 mmol/L (3.5-5.1); Protein, Total 6.9 g/dL (6.4-8.2); Sodium Level 140 mmol/L (136-145); Triglycerides 77 mg/dL; Very Low Density Lipoprotein 15 mg/dL (5-40)
== END 2021-09-19 23:59 | disposition short-term general hospital (02) ==
PROVIDERS: PCP Family Medicine; Referring Provider Family Medicine; Visit Provider Family Medicine
DX: Z00.00 Encounter for general adult medical examination without abnormal findings (principal)
CPT/HCPCS: 36415; 80053; 80061; 85025

== ENCOUNTER 2021-10-24 10:05 | Outpatient (CLI) | payer OTHER, SELFPAY ==
--- NOTE | 2021-10-24 10:10 | RAD_ITS ---
STUDY: X-RAY - RIGHT FOOT CLINICAL: Female, 56 years old. PAIN OF R GREAT TOE TECHNIQUE: 3 view(s) of the foot. COMPARISON: None. FINDINGS: Normal talus, calcaneus, and tarsal bones. Normal visualized subtalar, talonavicular, calcaneocuboid, tarsal and tarsometatarsal articulations. Normal metatarsi. Normal metatarsophalangeal joint of the great toe. Normal tibial and fibular sesamoid bones. Normal interphalangeal joint of the great toe. Normal phalanges of the great toe. Normal second through fifth metatarsophalangeal joints. Normal interphalangeal joints and phalanges of the lesser toes. The soft tissue structures are unremarkable. RAD/Foot min 3 Views IMPRESSION: Normal x-ray examination of the foot. Electronically Signed: Rios Falcon MD at 12:25 EST ,
== END 2021-10-24 23:59 | disposition home or self-care (01) ==
LOC: RAD 10:07
PROVIDERS: PCP Family Medicine; Referring Provider Family Medicine; Visit Provider Family Medicine
DX: M79.674 Pain in right toe(s) (principal)
CPT/HCPCS: 73630

== ENCOUNTER 2021-11-18 12:31 | Outpatient (CLI) | payer OTHER, SELFPAY ==
--- NOTE | 2021-11-18 12:32 | BI_ITS ---
MAMMOGRAPHY - BILATERAL SCREENING REASON FOR EXAM: Female, 56 years old. Routine annual screening examination. PERTINENT HISTORY: Non-contributory. TECHNIQUE: Digital bilateral breast kaci (3D mammographic acquisition) in the CC and MLO projections. 2-D mediolateral oblique (MLO) and craniocaudad (CC) views of both breasts were obtained. CAD: Full Field Digital Mammography with Computer Added Detection was performed. COMPARISON: Comparison is made with prior study 10/31/2020 and 10/16/2019. FINDINGS: Breast Composition: The breasts are extremely dense, which lowers the sensitivity of mammography. There are no dominant masses or suspicious calcifications. No other significant abnormalities are identified. There has been no significant change since the prior study. BI/SCRN MAMM (CAD)W/KACI BILAT IMPRESSION: Stable bilateral screening mammogram. Yearly follow-up mammogram recommended. (A) ASSESSMENT CATEGORY: BIRADS Category 1: Negative. A letter regarding these results will be sent to the patient by the facility within 30 days. Approximately 10% of breast cancers are not detected by mammography. A normal mammogram should not delay biopsy of a clinically suspicious abnormality. [id number] Electronically Signed: Toy Bonilla MD at 13:33 EDT ,
== END 2021-11-18 23:59 | disposition home or self-care (01) ==
LOC: OPBI 12:31
PROVIDERS: PCP Family Medicine; Referring Provider Obstetrics & Gynecology; Visit Provider Obstetrics & Gynecology
DX: Z12.31 Encounter for screening mammogram for malignant neoplasm of breast (principal)
CPT/HCPCS: 77063; 77067

== ENCOUNTER → 2022-10-05 | Outpatient (CLI) | payer OTHER, SELFPAY ==
[2022-10-05 07:22] LABS: Hematocrit 47.4 % (37-47); Hemoglobin 15.2 g/dL (12.0-15.0); Mean Corp Hgb Conc 32.1 g/dL (32-36); Mean Corpuscular Hgb 29.5 pg (27.0-32.0); Platelet Count 280 K/mm3 (150-450); RBC Distribution Width CV 12.5 % (11.6-14.6); RBC Distribution Width SD 42.1 fl (35.1-43.9); Red Blood Count 5.15 M/mm3 (4.2-5.4); White Blood Count 8.8 K/mm3 (4.4-11.0)
[2022-10-05 07:49] LABS: ALB/GLOB Ratio 1.2 RATIO (0.9-2.4); AST(SGOT) 19 U/L (15-37); Alanine Aminotransfer ALT/SGPT 21 U/L (13-56); Albumin, Serum 3.9 g/dL (3.2-5.0); Alkaline Phosphatase 111 U/L (45-117); Anion Gap 3 (5-15); BUN 21 mg/dL (7-18); BUN/Creat Ratio 18.8 RATIO (10-20); Calcium,Total 9.3 mg/dL (8.5-10.1); Chloride 110 mmol/L (98-107); Cholesterol 187 mg/dL (200); Creatinine, Serum 1.12 mg/dL (0.55-1.02); EST Glomerular Filtration Rate 53 mL/min (>60); Est Glom Filt Rate - Afr Amer 64 mL/min (>60); Globulin 3.3 g/dL (2.2-4.2); Glucose 106 mg/dL (74-106); High Density Lipoprotein 80 mg/dL; Potassium 4.5 mmol/L (3.5-5.1); Protein, Total 7.2 g/dL (6.4-8.2); Sodium Level 141 mmol/L (136-145); Triglycerides 71 mg/dL; Very Low Density Lipoprotein 14 mg/dL (5-40)
== END | disposition home or self-care (01) ==
LOC: LAB 06:04
PROVIDERS: PCP Family Medicine; Referring Provider Physician Assistant; Visit Provider Physician Assistant
DX: Z00.00 Encounter for general adult medical examination without abnormal findings (principal); Z13.220 Encounter for screening for lipoid disorders; Z13.1 Encounter for screening for diabetes mellitus
CPT/HCPCS: 36415; 80053; 80061; 85027

== ENCOUNTER → 2022-11-19 | Outpatient (CLI) | payer OTHER, SELFPAY ==
--- NOTE | 2022-11-19 09:42 | BI_ITS ---
MAMMOGRAPHY - BILATERAL SCREENING REASON FOR EXAM: Female, 57 years old. Routine annual screening examination. PERTINENT HISTORY: Non-contributory. TECHNIQUE: Digital bilateral breast kaci (3D mammographic acquisition) in the CC and MLO projections. 2-D mediolateral oblique (MLO) and craniocaudad (CC) views of both breasts were obtained. CAD: Full Field Digital Mammography with Computer Added Detection was performed. COMPARISON: Comparison is made with prior examination dated November 18, 2021 and October 31, 2020. FINDINGS: Breast Composition: The breasts are extremely dense, which lowers the sensitivity of mammography. There are no dominant masses or suspicious calcifications. No other significant abnormalities are identified. There has been no significant change since the prior study. BI/SCRN MAMM (CAD)W/KACI BILAT IMPRESSION: Stable bilateral screening mammogram. Yearly follow-up mammogram recommended. (A) ASSESSMENT CATEGORY: BIRADS Category 1: Negative. A letter regarding these results will be sent to the patient by the facility within 30 days. Approximately 10% of breast cancers are not detected by mammography. A normal mammogram should not delay biopsy of a clinically suspicious abnormality. [id number] Electronically Signed: Toy Bonilla MD at 10:49 EDT ,
== END | disposition home or self-care (01) ==
PROVIDERS: PCP Family Medicine; Visit Provider Obstetrics & Gynecology
DX: Z12.31 Encounter for screening mammogram for malignant neoplasm of breast (principal)
CPT/HCPCS: 77063; 77067

== ENCOUNTER → 2023-09-30 | Outpatient (CLI) | payer OTHER, SELFPAY ==
--- OUTSIDE RECORDS SUMMARY | 2023-09-30 06:21 | XMS RPT_ITS | CCD ---
Author Name Unknown Address [id number] [place] [address] Organization [facility] Care Team Providers Care Manager Business Continuity Name Role Phone Fred Kramer MD Primary Care Provider Joss MORE Attending Unavailable FRED KRAMER Primary Care Unavailable Allergies Allergy Classification Reported Allergen(s) Allergy Type Date of Onset Reaction(s) Facility (6 sources) Latex; Translations: [LATEX] Drug Intolerance 3 [facility] (6 sources) Penicillins; Translations: [PENICILLINS] Drug Intolerance 6 Rash [facility] (5 sources) Topical Antibiotics [Other] Propensity to adverse reactions 6 Swelling [facility] (1 source) OTHER; Translations: [OTHER] Propensity to adverse reactions (disorder) 6 [facility] Repository Medications Completed/Discontinued Medications Medication Drug Class(es) Dates Sig (Normalized) Sig (Original) acetaminophen 250 mg / aspirin 250 mg / caffeine 65 mg oral tablet (5 sources) Platelet Aggregation Inhibitor, Nonsteroidal Anti-inflammatory Drug, Central Nervous System Stimulant, Methylxanthine take 1 tablet by mouth every six hours as needed Aspirin-Acetamino phen-Caffeine 250-250-65 mg per tablet Take 1 tablet by mouth every 6 hours as needed. 0 Active Problems Active Problems Problem Classification Problem Date Documented Date Episodic/Chronic Cardiac dysrhythmias (7 sources) Supraventricular tachycardia; Translations: [Supraventricular tachycardia] Onset: 10-24-2021 10-24-2021 Chronic Immunizations and screening for infectious disease (1 source) Exposure to communicable disease; Translations: [Contact with and (suspected) exposure to other viral communicable diseases] Episodic Joint disorders and dislocations; trauma-related (7 sources) Degeneration of cartilage AND/OR meniscus of knee; Translations: [Other meniscus derangements, unspecified meniscus, right knee] Onset: 09-29-2018 09-29-2018 Chronic Osteoarthritis (7 sources) Degenerative joint disease of hand; Translations: [Unilateral primary osteoarthritis of first carpometacarpal joint, unspecified hand] Onset: 10-07-2017 10-07-2017 Chronic Other circulatory disease (6 sources) Orthostatic hypotension; Translations: [Orthostatic hypotension] Onset: 10-24-2021 10-24-2021 Episodic Other lower respiratory disease (1 source) Cough; Translations: [Acute cough] Episodic Other screening for suspected conditions (not mental disorders or infectious disease) (2 sources) Patient encounter status; Translations: [Encounter for screening for diabetes mellitus] Episodic Other upper respiratory infections (1 source) Sore throat symptom; Translations: [Acute pharyngitis, unspecified] Episodic Past or Other Problems Problem Classification Problem Date Documented Date Episodic/Chronic Genitourinary symptoms and ill-defined conditions (5 sources) Microscopic hematuria; Translations: [Other microscopic hematuria] Onset: 09-26-2015 10-24-2021 Episodic Other circulatory disease (1 source) Orthostatic hypotension; Translations: [Orthostatic hypotension] Onset: 10-24-2021 Episodic Other nervous system disorders (5 sources) H/O: migraine; Translations: [Personal history of other diseases of the nervous system and sense organs] Onset: 11-09-2013 11-09-2013 Episodic Other non-epithelial cancer of skin (7 sources) Squamous cell carcinoma of skin; Translations: [Squamous cell carcinoma of skin, unspecified] Onset: 10-24-2021 10-24-2021 Episodic Ovarian cyst (5 sources) Cyst of ovary; Translations: [Unspecified ovarian cyst, unspecified side] Onset: 06-20-2013 06-20-2013 Episodic Residual codes; unclassified (5 sources) History of colonoscopy; Translations: [Other specified postprocedural states] Onset: 10-01-2016 10-01-2016 Episodic Results Test Name Value Interpretation Reference Range Facil ity Vital Signs Date Time Vital Sign Value Performing Clinician Jessica carrion 10-15-2022 13:28-0500 Body height 165 cm MELISSA More PA-C Work Phone: [facility] 10-15-2022 13:28-0500 Body weight 53.07 kg NA More PA-C Work Phone: [facility] 10-15-2022 13:28-0500 Diastolic blood pressure 56 mm[Hg] NA More PA-C Work Phone: [facility] 10-15-2022 13:28-0500 Heart rate 67 /min NA More PA-C Work Phone: [facility] 10-15-2022 13:28-0500 Respiratory rate 16 /min NA More PA-C Work Phone: [facility] 10-15-2022 13:28-0500 SaO2% (BldA) [Mass fraction] 97 % NA More PA-C Work Phone: [facility] 10-15-2022 13:28-0500 Systolic blood pressure 100 mm[Hg] NA More PA-C Work Phone: [facility] 09-01-2022 13:09-0500 Body height 162.6 cm Kristy aPz MD Work Phone: [facility] 09-01-2022 13:09-0500 Body weight 52.62 kg Kristy Paz MD Work Phone: [facility] 09-01-2022 13:09-0500 Diastolic blood pressure 62 mm[Hg] Kristy Paz MD Work Phone: [facility] 09-01-2022 13:09-0500 Systolic blood pressure 100 mm[Hg] Kristy Paz MD Work Phone: [facility] 08-11-2022 13:06-0500 Body temperature 98.2 [degF] Zuri Alexander APRN.GOLDBEATER Work Phone: [facility] 08-11-2022 13:06-0500 Body weight 53.43 kg Zuri Alexander APRN.GOLDBEATER Work Phone: [facility] 12-20-2022 13:06-0500 Diastolic blood pressure 60 mm[Hg] Zuri Podlogar FAX MACHINE OPERATOR.GOLDBEATER Work Phone: [facility] 08-11-2022 13:06-0500 Heart rate 92 /min Zuri Podlogar FAX MACHINE OPERATOR.GOLDBEATER Work Phone: [facility] 08-11-2022 13:06-0500 Respiratory rate 16 /min Zuri Podlogar FAX MACHINE OPERATOR.GOLDBEATER Work Phone: [facility] 08-11-2022 13:06-0500 SaO2% (BldA) [Mass fraction] 98 % Zuri Podlogar FAX MACHINE OPERATOR.GOLDBEATER Work Phone: [facility] 08-11-2022 13:06-0500 Systolic blood pressure 98 mm[Hg] Zuri Podlogar FAX MACHINE OPERATOR.GOLDBEATER Work Phone: [facility] Encounters Encounter Date Encounter Type Care Provider Facility Start: 10-15-2022 End: 10-15-2022 ambulatory Joss MORE Facility:[facility] Start: 10-15-2022 Encounter for genera l adult medical examination without abnormal findings Joss MORE [facility] Start: 10-15-2022 End: 10-15-2022 Patient encounter procedure Joss More PA-C Work Phone: [facility] Procedures Date Procedure Procedure Detail Performing Clinician Start: 08-11-2022 STREP A MOLECULAR (POC) Zuri Podlogar FAX MACHINE OPERATOR.GOLDBEATER Work Phone: Start: 11-18-2021 Mammography Zuri Podl varsha FAX MACHINE OPERATOR.GOLDBEATER Work Phone: Start: 11-11-2020 Colonoscopy Kristy Paz MD Work Phone: Start: 09-07-2013 Colonoscopy Zuri Podl varsha FAX MACHINE OPERATOR.GOLDBEATER Work Phone: Plan of Treatment Date Care Activity Detail Author Start: 11-11-2030 Colonoscopy COLONOSCOPY [facility] Start: 11-11-2030 COLORECTAL CANCER SCREENING COLORECTAL CANCER SCREENING [facility] Start: 08-20-2026 HPV TESTING HPV TESTING [facility] Start: 08-20-2026 PAP TESTING PAP TESTING [facility] Start: 09-01-2024 LIPID SCREEN LIPID SCREEN [facility] Start: 10-15-2023 COVID-19 VACCINE (4 - Booster for Moderna series) COVID-19 VACCINE (4 - Booster for Moderna series) [facility] Immunizations Immunization Date Immunization Notes Care Provider Manoj yun 07-13-2022 influenza, seasonal, injectable NA More PA-C Work Phone: [facility] 07-14-2021 influenza, seasonal, injectable, preservative free NA More PA-C Work Phone: [facility] 07-15-2020 influenza A monovale nt (H5N1), adjuvanted, National stockpile 2012 Zuri Podlogar FAX MACHINE OPERATOR.GOLDBEATER Work Phone: [facility] 07-15-2020 influenza, seasonal, injectable NA More PA-C Work Phone: [facility] 07-17-2019 influenza, seasonal, injectable Zuri Podlogar FAX MACHINE OPERATOR.GOLDBEATER Work Phone: [facility] 07-17-2019 influenza, seasonal, injectable, preservative free NA More PA-C Work Phone: [facility] 07-21-2018 influenza, seasonal, injectable NA More PA-C Work Phone: [facility] 07-21-2017 influenza, seasonal, injectable Zuri Podlogar FAX MACHINE OPERATOR.GOLDBEATER Work Phone: [facility] 07-21-2017 influenza, seasonal, injectable, preservative free NA More PA-C Work Phone: [facility] 07-13-2016 influenza, seasonal, injectable NA More PA-C Work Phone: [facility] 08-05-2015 influenza, seasonal, injectable NA More PA-C Work Phone: [facility] 07-12-2014 influenza, seasonal, injectable NA More PA-C Work Phone: [facility] 06-22-2013 influenza, seasonal, injectable, preservative free NA More PA-C Work Phone: [facility] 06-12-2013 tetanus toxoid, redu arlet diphtheria toxoid, and acellular pertussis vaccine, adsorbed Zuri Podlogar FAX MACHINE OPERATOR.[facility] Work Phone: [facility] 11-08-1984 diphtheria and tetan us toxoids, adsorbed for pediatric use Zuri Podlogar FAX MACHINE OPERATOR.[facility] Work Phone: [facility] Work Phone: 01-28-1980 diphtheria and tetan us toxoids, adsorbed for pediatric use Zuri Podlogar FAX MACHINE OPERATOR.[facility] Work Phone: [facility] Work Phone: 09-25-1975 diphtheria and tetan us toxoids, adsorbed for pediatric use Zuri Podlogar FAX MACHINE OPERATOR.[facility] Work Phone: [facility] Work Phone: 01-12-1968 diphtheria, tetanus toxoids and acellular pertussis vaccine Zuri Podlogar FAX MACHINE OPERATOR.[facility] Work Phone: [facility] Work Phone: 01-12-1968 diphtheria, tetanus toxoids and acellular pertussis vaccine, unspecified formulation MELISSA More PA-C Work Phone: [facility] 01-12-1968 trivalent poliovirus vaccine, live, oral Zuri Podlogar FAX MACHINE OPERATOR.[facility] Work Phone: [facility] Work Phone: 04-02-1965 diphtheria, tetanus toxoids and acellular pertussis vaccine Zuri Podlogar FAX MACHINE OPERATOR.[facility] Work Phone: [facility] Work Phone: 04-02-1965 diphtheria, tetanus toxoids and acellular pertussis vaccine, unspecified formulation MELISSA MATAMOROS-Adalberto Work Phone: [facility] 02-21-1964 measles virus vaccine Zuri Podlogar FAX MACHINE OPERATOR.[facility] Work Phone: [facility] Work Phone: 1965 vaccinia (smallpox) vaccine, diluted Zuri Podlogar FAX MACHINE OPERATOR.[facility] Work Phone: [facility] Work Phone: 1965 diphtheria, tetanus toxoids and acellular pertussis vaccine Zuri Podlogar FAX MACHINE OPERATOR.[facility] Work Phone: [facility] Work Phone: 1965 diphtheria, tetanus toxoids and acellular pertussis vaccine, unspecified formulation NA More PA-C Work Phone: [facility] 1965 trivalent poliovirus vaccine, live, oral Zuri Podlogar FAX MACHINE OPERATOR.[facility] Work Phone: [facility] Work Phone: 1965 diphtheria, tetanus toxoids and acellular pertussis vaccine Zuri Podlogar FAX MACHINE OPERATOR.[facility] Work Phone: [facility] Work Phone: 1965 diphtheria, tetanus toxoids and acellular pertussis vaccine, unspecified formulation NA More PA-C Work Phone: [facility] 1965 trivalent poliovirus vaccine, live, oral Zuri Podlogar FAX MACHINE OPERATOR.[facility] Work Phone: [facility] Work Phone: 1965 diphtheria, tetanus toxoids and acellular pertussis vaccine Zuri Podlogar FAX MACHINE OPERATOR.[facility] Work Phone: [facility] Work Phone: 1965 diphtheria, tetanus toxoids and acellular pertussis vaccine, unspecified formulation NA More PA-C Work Phone: [facility] 1965 trivalent poliovirus vaccine, live, oral Zuri Podlogar FAX MACHINE OPERATOR.[facility] Work Phone: [facility] Work Phone: Payers Date Payer Category Payer Private Health Insurance [facility] [id number] 2022-Present [phone] [address] [place] [address] PPO [id number] 2022 Private Health Insurance [id number] 2019 Unknown MMO MMO TPA [id number] 2019-Present [address] [place] [address] PPO [id number] Social History Date Type Detail Facility Start: 06-28-2014 End: 09-01-2022 Tobacco smoking status NHIS Ex-smoker [facility] Start: 07-02-2013 End: 10-26-2013 History of tobacco use Current smoker [facility] Start: 07-02-2013 End: 10-26-2013 History of tobacco use Cigarette Smoker [facility] Start: 06-28-2014 End: 09-01-2022 Cigarette pack-years [facility] Start: 06-28-2014 End: 09-01-2022 Tobacco use and exposure Smokeless tobacco non-user [facility] Start: 10-24-2021 End: 10-15-2022 Alcohol intake Current non-drinker of alcohol (finding) [facility] Start: 1965 Sex Assigned At Not on file C [facility] Start: 10-08-2022 History SDOH Alcohol Frequency 1 [facility] Start: 10-08-2022 History SDOH Alcohol Std Drinks 0 [facility] Start: 10-08-2022 History SDOH Social Connections Phone 5 [facility] Start: 10-08-2022 History SDOH Social Connections Get Together 3 [facility] Start: 10-08-2022 History SDOH Physica l Activity DPW 7 [facility] Start: 10-08-2022 History SDOH Transport Med 2 [facility] Clinical Notes 10-07-2017 to 10-15-2022 Patient InstructionsM Jono More PA-C - 10/15/2022 1:40 PM ESTDeidre Rony Paz MD - 09/01/2022 1:07 PM ESTTelephone Encounter - M Jono More PA-C - 08/27/2022 1:13 PM EST Note Date & Type Note Facility 10-15-2022 Note HNO ID: [id number] Author: Joss More PA-C Service: ? Author Type: Physician Piler Type: Progress Notes Filed: 10/15/2022 6:30 PM Note Text: 57 year old female with c/o annual wellness exam Current concerns: None Orthostatic hypotension Svt (supraventricular tachycardia) (hcc) Stable, no new changes Careful when standing up S/p ablation Has some feeling like she's about to go into it but doesn't. Meniscus degeneration, right No pain or symptoms related to this Osteoarthritis of thumb, unspecified laterality Worse with starting activities, such as golfing, but better the more she moves it Cancer, skin, squamous cell No more lesions or changes in moles Follow up with Dough Mixer Helper for skin check, next appointment October 2022 HISTORIES FAMILY HISTORY Problem Relation Age of Onset Hypertension Mother Arthritis Mother Cancer Father Abdominal Lymphoma Osteoporosis Paternal Grandmother Lipids Paternal Grandfather High Cholesterol Coronary Artery Disease Paternal Grandfather Hypertension Maternal Grandfather Cancer Maternal Grandmother Uterine other (kidney stones) Sister other (Other) Sister No breast/ovary/colon cancer PAST MEDICAL HISTORY Diagnosis Date Dysmenorrhea Fibrocystic breast disease 610.1 History of colonoscopy with polypectomy 10/01/2016 hyperplastic polyp , 08/2013 History of migraine headaches 11/09/2013 Kidney stone 2018 Microscopic hematuria 09/26/2015 Osteoarthritis Left thumb Osteoarthritis of thumb 10/07/2017 Paroxysmal supraventricular tachycardia (HCC) Supraventricular tachycardia PAST SURGICAL HISTORY Procedure Laterality Date APPENDECTOMY 08/23/1999 COLONOSCOPY FLX DX W/COLLJ SPEC WHEN PFRMD 09/07/2013 Colonoscopy out pt H LIG/TRNSXJ FLP TUBE ABDL/VAG APPR UNI/BI bilateral partial salpingectomy PAST SURGICAL HISTORY OF Thumb surgery PAST SURGICAL HISTORY OF 08/23/2001 Cardiac Cath Ablation PAST SURGICAL HISTORY OF cyst removed from right eyelid PAST SURGICAL HISTORY OF Right 09/2021 excision on right breast SKIN BX, 1 LESION Right mid forehead TONSILLECTOMY PRIMARY/SECONDARY Tonsillectomy Social History Tobacco Use Smoking status: Former Packs/day: 0.00 Years: 22.00 Pack years: 0.00 Types: Cigarettes Start date: 07/02/2013 Quit date: 10/26/2013 Years since quittin.9 Smokeless tobacco: Never Vaping Use Vaping Use: Never used Substance Use Topics Alcohol use: No Drug use: No ACTIVE PROBLEM LIST Ovarian Cyst History of Migraine Headaches Microscopic Hematuria History of Colonoscopy With Polypectomy Osteoarthritis of Thumb Meniscus Degeneration, Right Orthostatic Hypotension Svt (Supraventricular Tachycardia) (Hcc) Cancer, Skin, Squamous Cell Current Outpatient Medications Medication Sig Dispense Refill benzonatate (TESSALON PERLES) 100 mg capsule Take 1 capsule by mouth three times daily as needed for cough. 30 capsule 0 polyethylene glycol 3350 (MIRALAX, GLYCOLAX) 17 gram/dose powder Use as directed for Miralax / Gatorade Bowel Prep Kit (Patient not taking: Reported on 09/01/2022) 238 g 0 MULTIVITAMIN ORAL Take by mouth. MAGNESIUM ORAL Take by mouth once daily. NIACIN ORAL Take by mouth once daily. cholecalciferol, vitamin D3, (VITAMIN D3 ORAL) Take by mouth once daily. Xezpmcd-Ckwadqxhcfsgc-Twczoolq (EXCEDRIN MIGRAINE) 250-250-65 mg per tablet Take 1 tablet by mouth every 6 hours as needed. No current facility-administered medications for this visit. SHINGRIX VACCINE(1 of 2) Never done COVID-19 VACCINE(4 - Booster for Moderna series) due on 08/20/2021 DEPRESSION ASSESSMENT Never done DIABETES SCREEN due on 09/01/2022 MAMMOGRAM due on 11/18/2022 REVIEW OF SYMPTOMS: General: denies fatigue, unusual weight loss or gain, fevers, chills. Energy Level: Fatigued by the end of the day since having COVID in March 2022. Otherwise feels great. Exercise Daily. If yes, what type: Mix of cardio and strength training. How often/lon-60 minutes. Sleep: hours: About 6-7 hours Diet: Rarely eats meat. Gets a variety of vegetables, carbs, and protein. Any routine health measures: Associate Field Service Engineer, Dough Mixer Helper, Bakery Demonstrator, Dentist. Tobacco use: None. Caffeine use: 1 cup a day. ETOH use: None. Marijuana use: None. Illicit drug use: None. Eyes: denies change in vision, glaucoma, cataracts. Wears glasses for driving and reading. Last eye exam: About 2 years ago. EENT: denies recurrent sinus infection, unusual nasal drainage, hoarsemess, sore throat, or recurrent sore in mouth or tongue. Cardiovascular: denies chest pain , SOB, palpitation, irregular or racing heart beats, (more content not included)... [facility] 10-15-2022 Jennifer More PA-C - 10/15/2022 2:14 PM EST HEALTH MAINTENANCE: Your Body mass index is 19.49 kg/m . (Target BMI: 19-25) Regular aerobic exercise, low fat diet, and periodic exams are recommended Living Will & Medical Power of Mental Health Professional recommended Periodic Pap smear per risk profile. Mammogram recommended yearly. Colon cancer screening by age 50 & every 5-10 years. Calcium intake of 1200-1500mg elemental calcium per day and 1,000-2,000 IU of Vitamin D3/cholecalciferol daily. Bone mineral density (by age 65 or sooner if other risk factors for osteoporosis). IMMUNIZATIONS: TD at age 50 or every 10 years Pneumovax (between ages 50-65) Recommend consideration for Zostavax (shingles vaccine) in women age 60 and older. Yearly flu vaccine in the fall for those 50 and older LABS: Thyroid screening every 5 years after age 50 Fasting blood sugar every 3 years after age 45 Fasting cholesterol every five years after age 45 documented in this encounter [facility] 10-15-2022 History of Presen t illness Narrative 57 year old female with c/o annual wellness exam Current concerns: None Orthostatic hypotension Svt (supraventricular tachycardia) (hcc) Stable, no new changes Careful when standing up S/p ablation Has some feeling like she's about to go into it but doesn't. Meniscus degeneration, right No pain or symptoms related to this Osteoarthritis of thumb, unspecified laterality Worse with starting activities, such as golfing, but better the more she moves it Cancer, skin, squamous cell No more lesions or changes in moles Follow up with Dough Mixer Helper for skin check, next appointment October 2022 HISTORIES FAMILY HISTORY Problem Relation Age of Onset Hypertension Mother Arthritis Mother Cancer Father Abdominal Lymphoma Osteoporosis Paternal Grandmother Lipids Paternal Grandfather High Cholesterol Coronary Artery Disease Paternal Grandfather Hypertension Maternal Grandfather Cancer Maternal Grandmother Uterine other (kidney stones) Sister other (Other) Sister No breast/ovary/colon cancer PAST MEDICAL HISTORY Diagnosis Date Dysmenorrhea Fibrocystic breast disease 610.1 History of colonoscopy with polypectomy 10/01/2016 hyperplastic polyp , 08/2013 History of migraine headaches 11/09/2013 Kidney stone 2018 Microscopic hematuria 09/26/2015 Osteoarthritis Left thumb Osteoarthritis of thumb 10/07/2017 Paroxysmal supraventricular tachycardia (HCC) Supraventricular tachycardia PAST SURGICAL HISTORY Procedure Laterality Date APPENDECTOMY 08/23/1999 COLONOSCOPY FLX DX W/COLLJ SPEC WHEN PFRMD 09/07/2013 Colonoscopy out pt [facility] LIG/TRNSXJ FLP TUBE ABDL/VAG APPR UNI/BI bilateral partial salpingectomy PAST SURGICAL HISTORY OF Thumb surgery PAST SURGICAL HISTORY OF 08/23/2001 Cardiac Cath Ablation PAST SURGICAL HISTORY OF cyst removed from right eyelid PAST SURGICAL HISTORY OF Right 09/2021 excision on right breast SKIN BX, 1 LESION Right mid forehead TONSILLECTOMY PRIMARY/SECONDARY <AGE 12 Tonsillectomy Social History Tobacco Use Smoking status: Former Packs/day: 0.00 Years: 22.00 Pack years: 0.00 Types: Cigarettes Start date: 07/02/2013 Quit date: 10/26/2013 Years since quittin.9 Smokeless tobacco: Never Vaping Use Vaping Use: Never used Substance Use Topics Alcohol use: No Drug use: No ACTIVE PROBLEM LIST Ovarian Cyst History of Migraine Headaches Microscopic Hematuria History of Colonoscopy With Polypectomy Osteoarthritis of Thumb Meniscus Degeneration, Right Orthostatic Hypotension Svt (Supraventricular Tachycardia) (Hcc) Cancer, Skin, Squamous Cell Current Outpatient Medications Medication Sig Dispense Refill benzonatate (TESSALON PERLES) 100 mg capsule Take 1 capsule by mouth three times daily as needed for cough. 30 capsule 0 polyethylene glycol 3350 (MIRALAX, GLYCOLAX) 17 gram/dose powder Use as directed for Miralax / Gatorade Bowel Prep Kit (Patient not taking: Reported on 09/01/2022) 238 g 0 MULTIVITAMIN ORAL Take by mouth. MAGNESIUM ORAL Take by mouth once daily. NIACIN ORAL Take by mouth once daily. cholecalciferol, vitamin D3, (VITAMIN D3 ORAL) Take by mouth once daily. Vcfhmqd-Vykeemhjshblj-Jawdhids (EXCEDRIN MIGRAINE) 250-250-65 mg per tablet Take 1 tablet by mouth every 6 hours as needed. No current facility-administered medications for this visit. SHINGRIX VACCINE(1 of 2) Never done COVID-19 VACCINE(4 - Booster for Moderna series) due on 08/20/2021 DEPRESSION ASSESSMENT Never done DIABETES SCREEN due on 09/01/2022 MAMMOGRAM due on 11/18/2022 REVIEW OF SYMPTOMS: General: denies fatigue, unusual weight loss or gain, fevers, chills. Energy Level: Fatigued by the end of the day since having COVID in March 2022. Otherwise feels great. Exercise Daily. If yes, what type: Mix of cardio and strength training. How often/lon-60 minutes. Sleep: hours: About 6-7 hours Diet: Rarely eats meat. Gets a variety of vegetables, carbs, and protein. Any routine health measures: Associate Field Service Engineer, Dough Mixer Helper, Bakery Demonstrator, Dentist. Tobacco use: None. Caffeine use: 1 cup a day. ETOH use: None. Marijuana use: None. Illicit drug use: None. Eyes: denies change in vision, glaucoma, cataracts. Wears glasses for driving and reading. Last eye exam: About 2 years ago. EENT: denies recurrent sinus infection, unusual nasal drainage, hoarsemess, sore throat, or recurrent sore in mouth or tongue. Cardiovascular: denies chest pain , SOB, palpitation, irregular or racing heart beats, orthopnea, leg swelling, history of rheumatic fever or prior heart conditions Respiratory: denies unusual cough, SOB, wheezing, history of recurrent bronchitis, pneumonia or tuberculosis. Denies day time drowsiness. Not sure: Snoring. No sleep apnea. GI: denies difficulty swallowing, nausea, vomiting, change in appetite. No change in bowel habits. Denies constipation, diarrhea, rectal bleeding or hemorrhoids, incontinence. No history of GERD, PUD, jaundice/hepatitis, GB disease, diverticulosis, colorectal cancer, hernias. Kidney/Bladder: Denies frequency, burning. Nocturia about x 1-2 times, no incontinence. No history of kidney stones, recurrent UTI or kidney infection. Females: Menopausal about 5 yrs ago. Still has hot flashes nightly. Hx of ovarian cysts stable, no pelvic infection, no tubal , no abnormal pap. Gravity Prospecting Operator Helper Paz in past. Overdue. Skin: denies unusual rashes. No history of skin cancer, bleeding/changing moles, or unusual skin lesions. Neurologic: Denies recurrent NOLAND, change in vision, hearing or smell, tremors, unusual weakness, loss of sensation, or difficulty with balance or gait. No history of epilepsy/convulsions, migraine, head/spinal injuries, or stroke/TIA. Psychiatric: denies unusual worry, moodiness, depression, suicidal ideation or unusual disturbance in relationships. No history of psychiatric illness. Endocrine: denies unusual thirst, hunger, excessive urination, change in skin or hair texture, emotional lability. No history of thryoid, pituitary or hormonal problems. Hematologic: denies easy bleeding, easy bruising, or history of anemia or blood transfusion. Denies hx blood clots. Infections: denies risk factors for HIV, hepatitis or history of unusual infection. Immunizations are up to date. Musculoskeletal: denies unusual stiffness, muscles aches, joint pain, or swelling. Denies recurrent sprain or disruption of joints, debilitating arthritis, gout, or other musculoskeletal disease. No Hx back injury, spinal stenosis, radiculopathy. EXAM: BP 100/56 Pulse 67 Resp 16 Ht 165 cm (5' 4.96 ) Wt 53.1 kg (117 lb) LMP 12/22/2013 SpO2 97% BMI 19.49 kg/m Pleasant adult female in no acute distress. Alert and oriented all spheres. Mood: Good. Affect: Open. Focus goal oriented. normal cognition. Speech normal. No deficits to learning or comprehension. Skin warm, dry, pink to lips and nailbeds. Normal turgor. Has bandaid on nose from recent treatment. No significant moles noted on upper body and legs, not checked underwear distributions. Respirations regular and unlabored. HEENT: NCAT. Eye exam: No scleral icterus or conjunctival injection. TM's clear, normal landmarks. Nose and oropharynx free from injection or lesion. Oral membranes moist and pink. Gums, dentition in good repair. No cervical lymph nodes. Thyroid non-tender, no masses, or enlargement. Carotids pulses 2+/4+ without bruits. Chest is normal shape. Lungs are clear to all francisco with good air exchange through out. HRRR without murmur or gallop. No lifts, heaves, or rubs. Abdomen: active bowel sounds throughout, soft, nontender, no masses or organomegaly. No CVAT. No abdominal bruits, axillary or inguinal nodes. Femoral pulses 2/4+ without bruit. Extrem: no clubbing, cyanosis, edema. Distal pulses 2+/4, prompt capillary refill. Gait normal. Romberg negative. Sensation grossly intact. Negative findings: speech normal, mental status intact, cranial nerves 2-12 intact, muscle tone normal, DTRs 1-2/4+ and symmetric. No focal weakness, no focal symptoms. ASSESSMENT/PLAN: 1. Well adult exam - ICD9: V70.0, ICD10: Z00.00 (primary diagnosis) - Counseled on healthy diet and regular exercise - Calcium intake with supplements or by diet of 1000 mg/day for under 50, 2031-8596 mg/day for 50+ - Discussed need and benefit for weight loss. BMI 19.49 kg/(m^2) - Depression screening tool completed and reviewed with patient. Based on score and interview, patient is not at risk for depression and recommended no further intervention at this time. - Patient was counseled [id number] by myself (the billing provider) for the following immunizations and vaccine components, including side effects: Shingrix. Declines at present 2. Orthostatic hypotension - ICD9: 458.0, ICD10: I95.1 Stable, no recent sx, has learned to monitor fluids and activity which has helped. 3. SVT (supraventricular tachycardia) (HCC) - ICD9: 427.89, ICD10: I47.1 No recent episodes. 4. 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 5. Osteoarthritis of thumb, unspecified laterality - ICD9: 715.34, ICD10: M18.10 No significant issues currently. 6. Cancer, skin, squamous cell - ICD9: 173.92, ICD10: C44.92 Following with derm. 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 2 grandchildren ages 1.5 and 3. Working at [employer]. Postmenopausal: Yes since age 52 HRT use: No. Last Pap: 08/26/2021 normal HPV: 08/25/2021 negative History of abnormal pap: No Last mammogram: 2021 normal History of abnormal mammogram: Yes Sexually active: No History of STDS: None Patient concerns for STD exposure: No. 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 History Comments: Sexual Activity: Not Currently; No partner data on record Contraception: Tubal Ligation PAST MEDICAL HISTORY Diagnosis Date Dysmenorrhea Fibrocystic breast disease 610.1 History of colonoscopy with polypectomy 10/01/2016 hyperplastic polyp , 08/2013 History of migraine headaches 11/09/2013 Kidney stone 2018 Microscopic hematuria 09/26/2015 Osteoarthritis Left thumb Osteoarthritis of thumb 10/07/2017 Paroxysmal supraventricular tachycardia (HCC) Supraventricular tachycardia PAST SURGICAL HISTORY Procedure Laterality Date APPENDECTOMY 08/23/1999 COLONOSCOPY FLX DX W/COLLJ SPEC WHEN PFRMD 09/07/2013 Colonoscopy out pt [facility] LIG/TRNSXJ FLP TUBE ABDL/VAG APPR UNI/BI bilateral partial salpingectomy PAST SURGICAL HISTORY OF Thumb surgery PAST SURGICAL HISTORY OF 08/23/2001 Cardiac Cath Ablation PAST SURGICAL HISTORY OF cyst removed from right eyelid PAST SURGICAL HISTORY OF Right 09/2021 excision on right breast SKIN BX, 1 LESION Right mid forehead TONSILLECTOMY PRIMARY/SECONDARY <AGE 12 Tonsillectomy FAMILY HISTORY Problem Relation Age of Onset Hypertension Mother Arthritis Mother Cancer Father Abdominal Lymphoma Osteoporosis Paternal Grandmother Lipids Paternal Grandfather High Cholesterol Coronary Artery Disease Paternal Grandfather Hypertension Maternal Grandfather Cancer Maternal Grandmother Uterine other (kidney stones) Sister other (Other) Sister No breast/ovary/colon cancer SOCIAL HISTORY Social History Tobacco Use Smoking status: Former Packs/day: 0.00 Years: 22.00 Pack years: 0.00 Types: Cigarettes Start date: 07/02/2013 Quit date: 10/26/2013 Years since quittin.8 Smokeless tobacco: Never Vaping Use Vaping Use: Never used Substance Use Topics Alcohol use: No Drug use: No REVIEW OF SYSTEMS Abdomen: No abdominal pain, nausea, vomiting, diarrhea, or constipation. + bloating, denies early satiety, indigestion, or increased flatulence. Bladder: No dysuria, gross hematuria, urinary frequency, urinary urgency, or incontinence Breast: + L breast lump, denies nipple d/c, overlying skin changes, redness or skin retraction and Breast lump(s) noted Allergies and current medication updated:Yes EXAM: BP 100/62 Ht 5' 4 (1.63m) Wt 116 lb (52.6kg) LMP 12/22/2013 BMI 19.90 kg/(m^2). GENERAL: pleasant, female in no apparent distress HEENT: Normocephalic, atraumatic, mucus membranes moist, and no lesions NECK: Supple, full range of motion, no adenopathy, and thyroid normal DERMATOLOGY: Normal, without lesions, non-icteric, and non-hirsute BREAST: soft, non-tender, symmetric, no dominant mass, normal nipple-areolar complex, no lymphadenopathy, and no nipple discharge ABDOMEN: soft, non-tender, and no masses PELVIC: external genitalia normal, normal Bartholin's glands, urethra, Tokeneke's glands, no vulvar lesions, no cervical lesions, good vaginal support, physiologic discharge present, normal appearing perineal body and perianal region BIMANUAL: uterus normal size, shape and consistency, no adnexal masses, and non-tender RECTOVAGINAL: deferred. NEURO: alert and oriented x3,exam grossly non-focal EXTREMITIES: normal ASSESSMENT/PLAN: 1) Health maintenance: Pap/HPV up to date. Mammogram ordered Mammogram up to date Nutrition, exercise and routine health maintenance exams reviewed. Calcium/Vitamin D supplementation information provided. Colon cancer screening: up to date with screening BMD: up to date 2) Follow up one year or sooner as needed Kristy Jones MD documented in this encounter [facility] 08-27-2022 Miscellaneous Notes Telephone on 08/26/22 CBC COMP METABOLIC PANEL LIPID PANEL BASIC Thanks, Larry More PA-C Patient calls and states that she scheduled wellness exam with Larry on 10/15/2022. Patient asking if provider wants labs done prior to appointment? If labs are placed, please fax orders to [facility] and give patient a call. Thank you, Concepción Andrade RN documented in this encounter [facility] 08-12-2022 Miscellaneous Notes Spoke with pt and information listed below given. Pt verbalizes understanding. Erendira Huntley LPN Called and left a voicemail for the Patient to call back and ask for a nurse to receive the providers message. Génesis Olguin RN Please call patient and let her know she is negative for influenza, COVID-19 and RSV. Zuri Alexander APRN.GOLDBEATER documented in this encounter [facility] 08-11-2022 History of Presen t illness Narrative 08/11/2022 Patient presents with: Sore Throat: Since yesterday Cough: Dry cough x1 week; exposed to RSV 1 week ago(richard) SUBJECTIVE: This is a 57 year old that is here today for Above Complaints.. Sore throat started after a coughing fit yesterday. A week ago had achiness and cough. Denies fevers, chills, loss of taste of smell, nasal congestion, rhinorrhea, SOB, wheezing, dyspnea, chest pain, nausea, vomiting, or diarrhea. Exposed by grandson to RSV. Using tussin and cough drops without much relief. Component Latest Ref Rng & Units 08/11/2022 Strep A (POCT) Negative Negative Procedural Control Valid PAST MEDICAL HISTORY Diagnosis Date Dysmenorrhea Fibrocystic breast disease 610.1 History of colonoscopy with polypectomy 10/01/2016 hyperplastic polyp , 08/2013 History of migraine headaches 11/09/2013 Kidney stone 2018 Microscopic hematuria 09/26/2015 Osteoarthritis Left thumb Osteoarthritis of thumb 10/07/2017 Paroxysmal supraventricular tachycardia (HCC) Supraventricular tachycardia ALLERGIES Latex, Penicillins, and Topical Antibiotics [Other] MEDICATIONS Current Outpatient Medications Medication Sig polyethylene glycol 3350 (MIRALAX, GLYCOLAX) 17 gram/dose powder Use as directed for Miralax / Gatorade Bowel Prep Kit MULTIVITAMIN ORAL Take by mouth. MAGNESIUM ORAL Take by mouth once daily. NIACIN ORAL Take by mouth once daily. cholecalciferol, vitamin D3, (VITAMIN D3 ORAL) Take by mouth once daily. Mycddjv-Dvwcaldshjbqt-Kirortrx (EXCEDRIN MIGRAINE) 250-250-65 mg per tablet Take 1 tablet by mouth every 6 hours as needed. No current facility-administered medications for this visit. Medications and allergies reviewed by this provider. SOCIAL HISTORY Social History Tobacco Use Smoking status: Former Packs/day: 0.00 Years: 22.00 Pack years: 0.00 Types: Cigarettes Start date: 07/02/2013 Quit date: 10/26/2013 Years since quittin.7 Smokeless tobacco: Never Substance Use Topics Alcohol use: No Drug use: No REVIEW OF SYSTEMS All other reviewed and negative other than HPI. OBJECTIVE: BP 98/60 Pulse 92 Temp 36.8 C (98.2 F) Resp 16 Wt 53.4 kg (117 lb 12.8 oz) LMP 12/22/2013 SpO2 98% BMI 20.11 kg/m . Vital signs reviewed by this provider. APPEARANCE Well appearing, alert, in no acute distress, well-hydrated, well nourished. EYES conjunctiva and sclera normal. EARS External ears normal, canals clear THROAT normal, no erythema NECK Supple, no adenopathy; thyroid symmetric, normal size, no bruits HEART RRR with normal S1 and S2, no murmurs, no gallops, no JVD appreciated LUNG clear to auscultation. No wheezes, rhonchi, or rales SKIN Skin color, texture, turgor normal, no suspicious rashes or lesions to exposed skin SHINGRIX VACCINE(1 of 2) Never done COVID-19 VACCINE(4 - Booster for Moderna series) due on 08/20/2021 DEPRESSION ASSESSMENT Never done DIABETES SCREEN due on 09/01/2022 HIV SCREENING due on 10/24/2022 MAMMOGRAM due on 11/18/2022 DTAP,TDAP,TD(10 - Td or Tdap) due on 06/12/2023 COLORECTAL CANCER SCREENING due on 09/07/2023 LIPID SCREEN due on 09/01/2024 PAP TESTING due on 08/20/2026 HPV TESTING due on 08/20/2026 INFLUENZA Completed HEPATITIS C SCREENING Completed ASSESSMENT/PLAN: 1. Sore throat - ICD9: 462, ICD10: J02.9 (primary diagnosis) - suspect viral - Rapid Strep negative in the office today - Discussed supportive care treatment with fluids, rest and analgesia. - The patient may also use OTC cough and cold meds as needed and warm salt water gargles, throat lozenges and/or OTC throat spray as needed. - The patient should follow up in 3-5 days if symptoms persist or worsen - Call back if drooling, increased temperature, symptoms of dehydration and/or still sick in one week - EXPEDITED COVID, FLU A/B + RSV - STREP A MOLECULAR (POC) 2. Acute cough - ICD9: 786.2, ICD10: R05.1 - no red flag symptoms or exam findings - red flag symptoms discussed, verbalizes understanding - EXPEDITED COVID, FLU A/B + RSV - BENZONATATE 100 MG CAPSULE - follow-up if symptoms fail to improve, to ER with red flag symptoms 3. Exposure to respiratory syncytial virus (RSV) - ICD9: V01.79, ICD10: Z20.828 - plan as in #2 - EXPEDITED COVID, FLU A/B + RSV Zuri Alexander APRN.GOLDBEATER Prescription instructions reviewed with patient as applicable. Patient advised if symptoms do not improve or if symptoms worsen sooner, to contact their primary care physician. Potential red flag symptoms discussed with the patient. Reviewed appropriate action plan to take if red flag symptoms occur. Patient agreeable to treatment plan. I spent a total of 25 minutes on the date of the service which included preparing to see the patient, [id number] patient care, completing clinical documentation, obtaining and/or reviewing separately obtained history, performing a medically appropriate examination, counseling and educating the patient/family/caregiver, and ordering medications, tests, or procedures. documented in this encounter [facility] documented as of this encounter (statuses as of 08/11/2022) [facility] History of Past illness Narrative* Problem Noted Date Resolved Date Tobacco use 10/07/2017 09/29/2018 Tobacco use 10/20/2012 09/26/2015 Tic 10/20/2012 10/24/2021 Open wound of nose, unspecif ied site, without mention of complication 05/28/2008 06/20/2013 documented as of this encounter (statuses as of 08/12/2022) [facility] History of Past illness Narrative* Problem Noted Date Resolved Date Tobacco use 10/07/2017 09/29/2018 Tobacco use 10/20/2012 09/26/2015 Tic 10/20/2012 10/24/2021 Open wound of nose, unspecif ied site, without mention of complication 05/28/2008 06/20/2013 documented as of this encounter (statuses as of 08/28/2022) [facility] History of Past illness Narrative* Problem Noted Date Resolved Date Tobacco use 10/07/2017 09/29/2018 Tobacco use 10/20/2012 09/26/2015 Tic 10/20/2012 10/24/2021 Open wound of nose, unspecif ied site, without mention of complication 05/28/2008 06/20/2013 documented as of this encounter (statuses as of 09/01/2022) [facility] History of Past illness Narrative* Problem Noted Date Resolved Date Tobacco use 10/07/2017 09/29/2018 Tobacco use 10/20/2012 09/26/2015 Tic 10/20/2012 10/24/2021 Open wound of nose, unspecif ied site, without mention of complication 05/28/2008 06/20/2013 documented as of this encounter (statuses as of 10/16/2022) [facility] Diagnosis Sore throat- Primary Acute pharyngitis Acute cough Exposure to respiratory syncytial virus (RSV) [facility] Diagnosis Well adult exam- Primary Routine general medical examination at a health care facility Screening for diabetes mellitus Screening for lipid disorders [facility] Diagnosis Encounter for gynecological examination (general) (routine) without abnormal findings- Primary [facility] Diagnosis Well adult exam- Primary Routine general medical examination at a health care facility Orthostatic hypotension SVT (supraventricular tachycardia) (HCC) Other specified cardiac dysrhythmias Meniscus degeneration, right Osteoarthritis of thumb, unspecified laterality Cancer, skin, squamous cell Squamous cell carcinoma of skin, site unspecified [facility] N[facility]* Diagnostic Procedure Only (Routine) - Authorized Specialty Diagnoses / Procedures Referred By Contprieto t Referred To Contact Diagnoses Disorder of the skin and subcutaneous tissue, unspecified Skin Lesion L98.9 Procedures OFFICE/OUTPATIENT NEW HIGH MDM 60-74 MINUTES OFFICE/OUTPATIENT ESTABLISHED HIGH MDM 40-54 MIN Eval and Treat Fred Kramer MD [address] [place] [address] Andrea Armstrong [address] [place] [address] Referral ID Status Reason Start Date Expiration Date V isits Requested Visits Authorized [id number] Authorized 10/27/2021 10/27/2022 99 99 [facility] Health Concerns Infection Onset Date Last Indicated Resolved Time COVID-19 Rule-Out 08/11/2022 08/11/2022 Summary Purpose Family History No Family History Records Found Advance Directives No Advanced Directives Records Found Additional Source Comments Source Comments (unrecognize d section and content) In the event this informatio n is protected by the Federal Confidentiality of Alcohol and Drug Abuse Patient Records regulations: The Federal rules restrict any use of the information to criminally investigate or prosecute any alcohol or drug abuse patient.[facility] the event this information is protected by the Federal Confidentiality of Alcohol and Drug Abuse Patient Records regulations: The Federal rules restrict any use of the information to criminally investigate or prosecute any alcohol or drug abuse patient.[facility] the event this information is protected by the Federal Confidentiality of Alcohol and Drug Abuse Patient Records regulations: The Federal rules restrict any use of the information to criminally investigate or prosecute any alcohol or drug abuse patient.[facility] the event this information is protected by the Federal Confidentiality of Alcohol and Drug Abuse Patient Records regulations: The Federal rules restrict any use of the information to criminally investigate or prosecute any alcohol or drug abuse patient.[facility] the event this information is protected by the Federal Confidentiality of Alcohol and Drug Abuse Patient Records regulations: The Federal rules restrict any use of the information to criminally investigate or prosecute any alcohol or drug abuse patient.[facility] Reason for Visit (unrecogniz ed section and content) Specialty Diagnoses / Procedures Referred By Shekhar woods Referred To Contact Family Medicine / FAMILY MEDICINE Diagnoses sore throat, cough Procedures 4C EST Fred Kramer MD [address] [place] [address] PodZuri tovar APRN.CNP [address] [place] [address] Referral ID Status Reason Start Date Expiration Date Visits Re quested Visits Authorized [id number] Closed 08/11/2022 08/11/2022 1 1 Reason Comments Results Reason Comments Lab Orders Reason Comments Yearly Exam Care Teams (unrecognized sec tion and content) Manager Business Continuity Relationship Specialty Start Date End Date Fred Kramer MD [address] [place], [place] [id number] PCP - General Family Medicine 10/24/21 Manager Business Continuity Relationship Specialty Start Date End Date Fred Kramer MD [address] [place], [place] [id number] PCP - General Family Medicine 10/24/21 Manager Business Continuity Relationship Specialty Start Date End Date Fred Kramer MD [address] [place], [place] [id number] PCP - General Family Medicine 10/24/21 Manager Business Continuity Relationship Specialty Start Date End Date Fred Kramer MD [address] [place] [address] PCP - General Family Medicine 10/24/21 INFORMATION SOURCE (unrecogn ized section and content) FOR RECORDS PERTAINING TO PATIENTS WHO ARE OR HAVE BEEN ENROLLED IN A CHEMICAL DEPENDENCY/SUBSTANCEABUSE PROGRAM, SOME INFORMATION MAY BE OMITTED. This clinical summary was aggregated from multiple sources. Caution should be exercised in using it in the provision of clinical care. This summary normalizes information from multiple sources, and as a consequence, information in this document may materially change the coding, format and clinical context of patient data. In addition, data may be omitted in some cases. CLINICAL DECISIONS SHOULD BE BASED ON THE PRIMARY CLINICAL RECORDS. [facility] [employer] provides no warranty or guarantee of the accuracy or completeness of information in this document.
[2023-09-30 07:19] LABS: Absolute Lymphocyte Count 2.22 X10^3/uL (0.83-4.51); Absolute Neutrophil Count 7.6 X10^3/uL (2.0-7.7); Basophil# 0.08 X10^3/uL; Basophil% 0.8 % (0-1); Eosinophil# 0.13 X10^3/uL; Eosinophils% 1.2 % (0-5); Hematocrit 47.5 % (37-47); Hemoglobin 15.1 g/dL (12.0-15.0); Lymphocyte # 2.22 X10^3/ul (0.83-4.51); Mean Corp Hgb Conc 31.8 g/dL (32-36); Mean Corpuscular Hgb 29.4 pg (27.0-32.0); Mean Corpuscular Volume 92.4 fL (81-99); Mean Platelet Vol. 9.3 fl (6.2-12.0); Monocyte# 0.49 X10^3/uL; Monocyte% 4.6 % (0-10); NRBC Flagged by Analyzer 0 % (0-5); Neutrophil % 72.1 % (47-70); Platelet Count 269 K/mm3 (150-450); RBC Distribution Width CV 12.4 % (11.6-14.6); RBC Distribution Width SD 42.3 fl (35.1-43.9); Red Blood Count 5.14 M/mm3 (4.2-5.4); White Blood Count 10.6 K/mm3 (4.4-11.0)
[2023-09-30 07:53] LABS: ALB/GLOB Ratio 1.2 RATIO (0.9-2.4); AST(SGOT) 23 U/L (15-37); Alanine Aminotransfer ALT/SGPT 24 U/L (13-56); Albumin, Serum 3.8 g/dL (3.2-5.0); Alkaline Phosphatase 121 U/L (45-117); Anion Gap 3 (5-15); BUN 16 mg/dL (7-18); BUN/Creat Ratio 17.1 RATIO (10-20); Calcium,Total 9.9 mg/dL (8.5-10.1); Chloride 112 mmol/L (98-107); Cholesterol 194 mg/dL (200); Creatinine, Serum 0.94 mg/dL (0.55-1.02); EST Glomerular Filtration Rate 65 mL/min (>60); Est Glom Filt Rate - Afr Amer 78 mL/min (>60); Globulin 3.3 g/dL (2.2-4.2); Glucose 92 mg/dL (74-106); High Density Lipoprotein 72 mg/dL; Potassium 4.3 mmol/L (3.5-5.1); Protein, Total 7.1 g/dL (6.4-8.2); Sodium Level 141 mmol/L (136-145); Triglycerides 95 mg/dL; Very Low Density Lipoprotein 19 mg/dL (5-40)
== END | disposition home or self-care (01) ==
LOC: LAB 06:05
PROVIDERS: PCP Family Medicine; Referring Provider Family Medicine; Visit Provider Family Medicine
DX: Z00.00 Encounter for general adult medical examination without abnormal findings (principal); I95.1 Orthostatic hypotension
CPT/HCPCS: 36415; 80053; 80061; 85025

== ENCOUNTER → 2023-11-25 | Outpatient (CLI) | payer OTHER, SELFPAY ==
--- NOTE | 2023-11-25 10:45 | BI_ITS ---
MAMMOGRAPHY - BILATERAL SCREENING REASON FOR EXAM: Female, 58 years old. Routine annual screening examination. PERTINENT HISTORY: Non-contributory. TECHNIQUE: Digital bilateral breast kaci (3D mammographic acquisition) in the CC and MLO projections. 2-D mediolateral oblique (MLO) and craniocaudad (CC) views of both breasts were obtained. CAD: Full Field Digital Mammography with Computer Added Detection was performed. COMPARISON: Comparison is made with prior study dated November 19, 2022 and November 18, 2021. FINDINGS: Breast Composition: The breasts are extremely dense, which lowers the sensitivity of mammography. There are no dominant masses or suspicious calcifications. No other significant abnormalities are identified. There has been no significant change since the prior study. BI/SCRN MAMM (CAD)W/KACI BILAT IMPRESSION: Stable bilateral screening mammogram. Yearly follow-up mammogram recommended. (A) ASSESSMENT CATEGORY: BIRADS Category 1: Negative. A letter regarding these results will be sent to the patient by the facility within 30 days. Approximately 10% of breast cancers are not detected by mammography. A normal mammogram should not delay biopsy of a clinically suspicious abnormality. [id number] Electronically Signed: Toy Bonilla MD at 12:45 EDT ,
== END | disposition home or self-care (01) ==
LOC: OPBI 10:43
PROVIDERS: PCP Family Medicine; Referring Provider Obstetrics & Gynecology; Visit Provider Obstetrics & Gynecology
DX: Z12.31 Encounter for screening mammogram for malignant neoplasm of breast (principal)
CPT/HCPCS: 77063; 77067

== ENCOUNTER → 2024-02-28 | Outpatient (CLI) | payer OTHER, SELFPAY ==
[2024-02-28 15:51] LABS: Bacteria 0 SEEN /hpf (None Seen); Squamous Epithelial Cells - UA 0 SEEN /hpf (5-10)
[2024-02-28 15:55] LABS: Color, Urine Yellow (Yellow); Glucose, Dipstick Normal (Normal); Ketone-Dipstick 5 mg/dl (Negative); Leukocyte Esterase-Dipstick 25 /ul (Negative); Nitrite-Dipstick Negative (Negative); Occult Blood-Urine 50 /ul (Negative); Protein-Dipstick 15 mg/dl (Negative); Specific Gravity, Urine 1.025 (1.002-1.030); Urine Bilirubin Dipstick Negative (Negative); Urine Clarity Clear (Clear); Urine Urobilinogen 1 mg/dl (Normal)
[2024-02-28 16:14] LABS: Calcium Oxalate Crystals Ur 2+ /hpf (<or=2+); Mucous, Urine 1+ /hpf (<or=2+); Red Blood Cells-Urine 0-5 SEEN /hpf (0-5); White Blood Cells 0-5 SEEN /hpf (0-5)
== END | disposition home or self-care (01) ==
LOC: LABSPEC 14:56
PROVIDERS: PCP Family Medicine; Referring Provider Physician Assistant; Visit Provider Physician Assistant
DX: R30.0 Dysuria (principal)
CPT/HCPCS: 81001; 87086; 87088

== ENCOUNTER → 2024-09-27 | Outpatient (CLI) | payer OTHER, SELFPAY ==
[2024-09-27 06:46] LABS: Absolute Lymphocyte Count 1.77 X10^3/uL (0.83-4.51); Absolute Neutrophil Count 7.3 X10^3/uL (2.0-7.7); Basophil# 0.05 X10^3/uL; Basophil% 0.5 % (0-1); Eosinophil# 0.22 X10^3/uL; Eosinophils% 2.2 % (0-5); Hematocrit 45.4 % (37-47); Hemoglobin 14.4 g/dL (12.0-15.0); Lymphocyte # 1.77 X10^3/ul (0.83-4.51); Mean Corp Hgb Conc 31.7 g/dL (32-36); Mean Corpuscular Hgb 29.2 pg (27.0-32.0); Mean Corpuscular Volume 92.1 fL (81-99); Mean Platelet Vol. 9.2 fl (6.2-12.0); Monocyte# 0.54 X10^3/uL; Monocyte% 5.5 % (0-10); NRBC Flagged by Analyzer 0 % (0-5); Neutrophil # 7.25 X10^3/uL (2.7-7.7); Neutrophil % 73.5 % (47-70); Platelet Count 227 K/mm3 (150-450); RBC Distribution Width CV 12.2 % (11.6-14.6); RBC Distribution Width SD 41.6 fl (35.1-43.9); Red Blood Count 4.93 M/mm3 (4.2-5.4); White Blood Count 9.9 K/mm3 (4.4-11.0)
[2024-09-27 07:10] LABS: AST(SGOT) 21 U/L (15-37); Alanine Aminotransfer ALT/SGPT 26 U/L (13-56); Albumin, Serum 3.6 g/dL (3.2-5.0); Alkaline Phosphatase 99 U/L (45-117); Anion Gap 3 (5-15); BUN 17 mg/dL (7-18); Calcium,Total 9.4 mg/dL (8.5-10.1); Chloride 111 mmol/L (98-107); Cholesterol 163 mg/dL (200); Creatinine, Serum 1.06 mg/dL (0.55-1.02); EST Glomerular Filtration Rate 56 mL/min (>60); Est Glom Filt Rate - Afr Amer 68 mL/min (>60); Globulin 3.5 g/dL (2.2-4.2); Glucose 88 mg/dL (74-106); High Density Lipoprotein 73 mg/dL; Potassium 4.3 mmol/L (3.5-5.1); Protein, Total 7.1 g/dL (6.4-8.2); Sodium Level 141 mmol/L (136-145); Triglycerides 50 mg/dL; Very Low Density Lipoprotein 10 mg/dL (5-40)
== END | disposition home or self-care (01) ==
PROVIDERS: PCP Family Medicine; Referring Provider Family Medicine; Visit Provider Family Medicine
DX: Z00.00 Encounter for general adult medical examination without abnormal findings (principal); Z95.1 Presence of aortocoronary bypass graft
CPT/HCPCS: 36415; 80053; 80061; 85025

== ENCOUNTER → 2024-11-29 | Outpatient (CLI) | payer OTHER, SELFPAY ==
--- NOTE | 2024-11-29 10:43 | BI_ITS ---
EXAM: SCRN MAMM (CAD)W/KACI BILAT 11/29/2024 CLINICAL HISTORY: F, Age 59 y/o , SCREENING TECHNIQUE: Bilateral screening digital breast tomosynthesis with 2D and 3D images. Computer aided detection. COMPARISON: Prior exam(s) dated 11/25/2023, 11/19/2022. FINDINGS: TISSUE DENSITY: The breast tissue is extremely dense which lowers the sensitivity of mammography. The mammogram demonstrates that the patient has dense breasts. Supplemental screening with whole breast ultrasound or MRI may be considered for further evaluation. Bilateral Breast Mammographic Findings: No significant masses, calcifications or other abnormalities are identified. BI/SCRN MAMM (CAD)W/KACI BILAT IMPRESSION: Right Breast: BIRADS 1 NEGATIVE. Left Breast: BIRADS 1 NEGATIVE. OVERALL FINAL ASSESSMENT: BIRADS 1 NEGATIVE. RECOMMENDATION: Routine annual follow-up in 1 Year A letter with findings and recommendations will be mailed to the patient. Reading Location: [id number]
== END | disposition home or self-care (01) ==
LOC: OPBI 10:42
PROVIDERS: PCP Family Medicine; Referring Provider Registered Nurse; Visit Provider Registered Nurse
DX: Z12.31 Encounter for screening mammogram for malignant neoplasm of breast (principal)
CPT/HCPCS: 77063; 77067